=== PATIENT | female | born 1965 | race Hispanic/Latino ===

== ENCOUNTER 2020-01-22 18:15 | Emergency (ER) | payer BC ==
--- OUTSIDE RECORDS SUMMARY | 2020-01-22 18:17 | XMS REPORT | Clinical Summary ---
:1965 Author Organization [facility] Address [address] [place] [address] Care Team Providers Name Role Phone MD Venkatesh Primary Care Provider Allergies No Known Active Allergies Medications Medication Sig Dispensed Refills Start Date End Date Status losartan (COZAAR) 50 MG TK 1 T PO D 0 11/11/2015 Active tablet bisoprolol (ZEBETA) 5 MG TK 1 T PO QD 5 11/11/2015 Active tablet levothyroxine (SYNTHROID, TK 1 T PO QAM 1 6 Active LEVOTHROID) 112 MCG tablet Active Problems Problem Noted Date Radial styloid tenosynovitis of both hands 12/01/2015 Carpal tunnel syndrome on right 12/01/2015 Carpal tunnel syndrome, left 12/01/2015 Medical History Medical History Date Comments Hypertension Hyperlipidemia IBS (irritable bowel syndrome) Ulcerative colitis (HCC) Carpal tunnel syndrome on right 12/01/2015 Carpal tunnel syndrome, left 12/01/2015 Family History Medical History Relation Name Comments Arthritis Mother Relation Name Status Comments Mother Social History Tobacco Use Types Packs/Day Years Used Date Never Assessed Sex Assigned at Date Recorded Not on file Last Filed Vital Signs Not on file Plan of Treatment Health Maintenance Due Date Last Done Comments CERVICAL CANCER SCREENING 1986 BREAST CANCER SCREENING 2015 COLONOSCOPY SCREENING 2015 SHINGLES VACCINES (#1) 2015 INFLUENZA VACCINE 10/19/2019 Results Not on fileafter 01/21/2019 Insurance Payer Benefit Plan / Subscriber ID Effective Dates Phone Addre ss Type Group BCBS EXCHANGE BLUE ADVANTAGE [id number] 2015-Present Exchange HMO EXCH Advance Directives For more information, please contact: [phone] Type Date Recorded Patient Track Grinder Explanati on Advance Directives, Living Will and Medical Power of Human Resources Executive Assistant
--- OUTSIDE RECORDS SUMMARY | 2020-01-22 18:18 | XMS REPORT | Summary of Care ---
:1965 Author Organization [facility] Address [address] [place] [address] Care Team Providers Name Role Phone Unavailable Primary Care Provider Unavailable Reason for Visit Reason Comments Exposure Encounter Details Date Type Department Care Team Description 11/07/2019 Laboratory Only [facility] Family Tracee Bolaños, SEO CONSULTANT [address] [place] [address] Suspected 2019 [facility], Adc Fam Pob I Coronavirus 136 [facility] Infection ([address] Drive Dx) [place] [address] Allergies Not on Filedocumented as of this encounter (statuses as of 11/07/2019) Medications Not on filedocumented as of this encounter (statuses as of 11/07/2019) Active Problems Not on filedocumented as of this encounter (statuses as of 11/07/2019) Social History Tobacco Use Types Packs/Day Years Used Date Never Assessed Sex Assigned at Date Recorded Not on file documented as of this encounter Last Filed Vital Signs Not on filedocumented in this encounter Nursing Notes Martha Nguyen MA - 11/07/2019 8:00 AM DILLONmichi Zaldivar is a 54 year old female here for COVID Screening with a Nasopharyngeal Swab All droplet and contact precautions taken with appropriate PPE worn while interacting with patient. ? Goggles ? N95 Mask ? Gloves ? Gown RR 18 Pulse Ox 99% Patient educated on plan of care for visit, swabbing technique, risks and benefits of test and length of time to receive results. Verbal consent obtained to perform test. CDC Fact Sheet for Patients nCoV Diagnostic Panel dated 06/02/2019 and Factsheet What to Do if Sick with COVID 19 05/13/19 provided. Patient swabbed per appropriate nasopharyngeal technique, and patient tolerated well. Patient was discharged from the testing clinic in stable condition. Martha Nguyen MA 11/07/2019 8:08 AM documented in this encounter Plan of Treatment Name Type Priority Associated Diagnoses Order S esa COVID-19 (PCR MOLECULAR LAB Routine Suspected 2019 No pa Ordered: 11/07/2019 TESTING) Coronavirus Infection Health Maintenance Due Date Last Done Comments HEPATITIS C (HCV) SCREEN 1965 Depression Screening 1977 DTaP,Tdap,and Td Vaccines (1 - 1984 Tdap) PAP SMEAR 1986 Breast Cancer Screening (MAMMOGRAM) 2005 COLON CANCER SCREENING ANNUAL 2015 FIT/FOBT COLON CANCER SCREENING FIT DNA 2015 EVERY 3 YEARS COLON CANCER SCREENING 2015 SIGMOIDOSCOPY EVERY 5 YEARS COLONOSCOPY 2015 Colorectal Cancer Screening 2015 Zoster Recombinant Vaccine 2015 (SHINGRIX) (1 of 2) INFLUENZA VACCINE (#1) 2019 PNEUMOCOCCAL 0-64 YEARS COMBINED Aged Out No longer eligible based on SERIES patient's age to complete this topic documented as of this encounter Results Not on filedocumented in this encounter Visit Diagnoses Diagnosis Suspected 2018 Novel Coronavirus Infecti on - Primary documented in this encounter Additional Health Concerns Infection Onset Date Last Indicated Resolved Time COVID-19 Rule Out 11/07/2019 11/07/2019 documented as of this encounter Insurance Payer Benefit Plan Subscriber ID Effective Dates Phone Address Type / Group BCBS OF [place] [id number] 2019-Prese [phone] [address] PPO/POS [place] - OUT OF nt 7 [id number] [place] [address] BCBS OF BCBS FED [id number] 2019-Prese [phone] [address] PPO/POS [place] SELECT nt [id number] [place] [address] documented as of this encounter
--- OUTSIDE RECORDS SUMMARY | 2020-01-22 18:18 | XMS REPORT | Clinical Summary ---
:1965 Author Organization [facility] Address [address] [place] [address] Care Team Providers Name Role Phone Arley Riddle Primary Care Provider Allergies No Known Allergies Medications Medication Sig Dispensed Refills Start Date End Date Status bisoprolol-hydroCHLOROt Take 1 tablet by 0 Active hiazide (ZIAC) 5-6.25 mouth daily. mg per tablet losartan (COZAAR) 50 MG Take 50 mg by 0 Active tablet mouth daily. esomeprazole (NEXIUM) Take 40 mg by 0 Active 40 MG capsule mouth daily. levothyroxine Take 112 mcg by 0 Active (SYNTHROID, LEVOTHROID) mouth Every 112 MCG tablet morning on an empty stomach. acetaminophen (TYLENOL) Take 500 mg by 0 Active 500 MG tablet mouth every 6 (six) hours as needed for Pain. mesalamine (LIALDA) 1.2 Take 1,200 mg by 0 Active gram EC tablet mouth daily with breakfast. Active Problems Not on file Encounters Date Type Specialty Care Team Description 12/30/2019 Outside Orders Central Scheduling Cricket Garcia Screen ing mammogram, MD Eh encounter for ( Primary Dx) after 01/21/2019 Social History Tobacco Use Types Packs/Day Years Used Date Never Smoker Smokeless Tobacco: Never Used Alcohol Use Drinks/Week oz/Week Comments Yes 1 Glasses of wine 1.0 socially Sex Assigned at Date Recorded Not on file Last Filed Vital Signs Not on file Plan of Treatment Health Maintenance Due Date Last Done Comments COLON CANCER SCREENING 1965 COLONOSCOPY CERVICAL CANCER SCREENING PAP 1986 ONLY (Age 21-65) LIPID PANEL 2010 INFLUENZA VACCINE (#1) 2019 BREAST CANCER SCREENING 12/27/2020 12/27/2018, 11/14/2017, 11/08/2016, Additional history exists Results Not on fileafter 01/21/2019 Insurance Payer Benefit Plan Subscriber ID Effective Dates Phone Address Type / Group BLUE BCBS HMO [id number] 2010-Bee [phone] [address] HMO/POS CROSS/BLUE BLUE/ESSENTIA t [id number] [place] [address] (Work) [phone]
--- OUTSIDE RECORDS SUMMARY | 2020-01-22 18:18 | XMS REPORT | Summary of Care ---
:1965 Author Organization [facility] Address [address] [place] [address] Care Team Providers Name Role Phone Unavailable Primary Care Provider Unavailable Reason for Visit Reason Comments Lab Results Encounter Details Date Type Department Care Team Description 01/01/2020 Telephone ACCESS CENTER Yuly Capellan hasher machine operator Results [address] [address] [place] [address] Allergies Not on Filedocumented as of this encounter (statuses as of 01/01/2020) Medications Not on filedocumented as of this encounter (statuses as of 01/01/2020) Active Problems Not on filedocumented as of this encounter (statuses as of 01/01/2020) Social History Tobacco Use Types Packs/Day Years Used Date Never Assessed Sex Assigned at Date Recorded Not on file COVID-19 Exposure Response Date Recorded In the last month, have you been in contact with Yes 12/31/2019 7:59 AM CDT someone who was confirmed or suspected to have Coronavirus / COVID-19? documented as of this encounter Last Filed Vital Signs Not on filedocumented in this encounter Miscellaneous Notes Telephone Encounter - Yuly Capellan RN - 01/01/2020 8:15 AM CDT Results COVID-19 (PCR MOLECULAR TESTING) (Order [id number]) Patient Release Status: This result is [facility] by the [facility] Result Information Flag: Normal Status: Final result (Collected: 12/31/2019 08:27) Provider Status: Open COVID-19 (PCR MOLECULAR TESTING) My Chart message sent to notify patient of negative results. Yuly MORROW RN-BC Nurse Clinician [facility] documented in this encounter Plan of Treatment Health Maintenance Due Date [...] Results Not on filedocumented in this encounter Additional Health Concerns Infection Onset Date Last Indicated Resolved Time COVID-19 Rule Out 12/31/2019 12/31/2019 01/01/2020 1: 46 AM CDT documented as of this encounter Insurance Payer Benefit Plan / Subscriber ID Effective Dates Phone Addre ss Type Group BCBS OF BLUE ESSENTIALS [id number] 2019-Bee [phone] [address] [facility] [id number] [place] [address] documented as of this encounter
--- OUTSIDE RECORDS SUMMARY | 2020-01-22 18:18 | XMS REPORT | Summary of Care ---
:1965 Author Organization [facility] - [facility] Address [address] [place] [address] Care Team Providers Name Role Phone Unavailable Primary Care Provider Unavailable Encounter Details Date Type Department Care Team Description 12/31/2019 Orders Only [facility] Doctor Unassigned, No [address] [facility] [place] [address] [address] [place] [address] Allergies Not on Filedocumented as of this encounter (statuses as of 12/31/2019) Medications Not on filedocumented as of this encounter (statuses as of 12/31/2019) Active Problems Not on filedocumented as of this encounter (statuses as of 12/31/2019) Social History Tobacco Use Types Packs/Day Years [...] Signs Not on filedocumented in this encounter Plan of Treatment Health [...] this topic documented as of this encounter Procedures Procedure Name Priority Date/Time Associated Diagnosis Comme nts NO SHOW OR MISSED Routine 12/31/2019 8:06 AM APPOINTMENT POLICY CDT ACKNOWLEDGEMENT documented in this encounter Results Not on filedocumented in this encounter Additional Health Concerns Infection Onset Date Last Indicated Resolved Time COVID-19 Confirmed 12/01/2019 12/01/2019 12/31/2019 12 :58 AM CDT documented as of this encounter Insurance Payer Benefit Plan / Subscriber ID Effective Dates Phone Addre ss Type Group BCBS OF BLUE ESSENTIALS [id number] 2019-Bee [phone] [address] [facility] [id number] [place] [address] documented as of this encounter
--- OUTSIDE RECORDS SUMMARY | 2020-01-22 18:18 | XMS REPORT | Summary of Care ---
:1965 Author Organization [facility] Address [address] [place] [address] Care Team Providers Name Role Phone Unavailable Primary Care Provider Unavailable Reason for Visit Reason Comments LAB WORK Auth/Cert Status Reason Specialty Diagnoses / Referred By Referred To Procedures Contact Contact Clinical Medical Diagnoses exposure Adc Lab Laboratory Procedures covid [address] [place] [address] Encounter Details Date Type Department Care Team Description 12/31/2019 Laboratory Only [facility] Danielle Hutson MD [address] [place] [address] Close exposure to Phlebotomy Only, Adc Test COVID-19 virus Lab-[place] (Primary Dx) [address] [place] [address] Allergies Not on Filedocumented as of this [...] filedocumented in this encounter Plan of Treatment Name Type Priority Associated Diagnoses Date/Ti me COVID-19 (PCR MOLECULAR LAB Routine Close exposure to 12/31/2019 8:27 AM CDT TESTING) COVID-19 virus Name Type Priority Associated Diagnoses Order S chedule COVID-19 (PCR MOLECULAR LAB Routine Close exposure to Expected: 12/31/2019, TESTING) COVID-19 virus Expires: 12/18 Health Maintenance Due Date Last Done Comments [...] filedocumented in this encounter Visit Diagnoses Diagnosis Close exposure to COVID-19 virus - Prima ry documented in this encounter Insurance Payer Benefit Plan / Subscriber ID Effective Dates Phone Addre ss Type Group BCBS OF BLUE ESSENTIAL[place] [id number] 2019-Bee [phone] [address] [facility] [id number] [place] [address] documented as of this encounter
--- OUTSIDE RECORDS SUMMARY | 2020-01-22 18:18 | XMS REPORT | Continuity of Care Document ---
:1965 Author Organization [facility] t Address [address] [place] [address] Care Team Providers Name Role Phone Arley Riddle Primary Care Physician Timi FIGUEROA Attending Clinician Unavailable Only, Test Attending Clinician Unavailable Doctor Unassigned, Name Attending Clinician Unavailable Jose HICKS, Eh Attending Clinician Lab, Fam Pob I Attending Clinician Unavailable Baljeet SERRANO Attending Clinician Unavailable Baljeet SERRANO Admitting Clinician Unavailable Payers Payer Name Policy Type Policy Effective Date Expiration Date Sour ce Number BLUE CROSS/BLUE [id number] 2010 [facility] 00:00:00 - Medical BLUE/ESSENTIALSxx Avawam [id number], [place] [address]GXB/POS Problems Condition Condition Condition Status Onset Resolution Last Treating Co mments Source Name Details Category Date Date Treatment Clinician Date Radial Radial Disease Active [place] styloid styloid 11-30 [facility] tenosynovi tenosynovi 00:00: st tis of tis of 00 both hands both hands Carpal Carpal Disease Active [facility] tunnel tunnel 11-30 [facility] syndrome syndrome 00:00: st on right on right 00 Carpal Carpal Disease Active [facility] tunnel tunnel 11-30 [facility] syndrome, syndrome, 00:00: st left left 00 Allergies, Adverse Reactions, Alerts This patient has no known allergies or adverse reactions. Family History Family Member Diagnosis Comments Start Date Stop Date Source Natural mother Arthritis [place] [facility] Social History Social Habit Start Date Stop Date Quantity Comments Source Sex Assigned At [facility] Tobacco use and 2016-12-28 2016-12-[address] [facility] Alcohol intake 2016-12-28 2016-12-28 [facility] [facility] (finding) Alcohol Comment 2016-12-28 2016-12-[address] [facility] - 00:[facility]00 [facility]00 [facility] Smoking Status Start Date Stop Date Source Never smoker [facility] Medications Ordered Filled Start Stop Current Ordering Indication Dosage Frequency Signature Comments Components Source Medication Medication Date Date Medication? Clinician (SIG) Name Name bisoprolol- 2016-03 Yes 1{tbl} QD Take [address] hydroCHLORO 0-11 tablet by Chau es - thiazide 14:35: mouth Medical (ZIAC) 21 daily. Center 5-6.25 mg per tablet losartan 2016-03 Yes 50mg QD Take [address] (COZAAR) 50 0-11 by mouth Luke s - MG tablet 14:35: daily. Medica l 21 Center esomeprazol 2016-03 Yes 40mg QD Take [address] [facility] (NEXIUM) 0-11 by mouth Lukes - 40 MG 14:35: daily. Medical capsule 21 Center levothyroxi 2016-03 Yes 112ug Take [address] ne 0-11 mcg by Lukes - (SYNTHROID, 14:35: mouth Medic al LEVOTHROID) 21 Every Center 112 MCG morning on tablet an empty stomach. acetaminoph 2016-03 Yes 500mg Take [address] en 0-11 mg by Lukes - (TYLENOL) 14:35: mouth Medical 500 MG 21 every 6 Center tablet (six) hours as needed for Pain. mesalamine 2016-03 Yes 1200mg Take 1,[address] (LIALDA) 0-11 mg by Lukes - 1.2 gram EC 14:35: mouth Medic al tablet 21 daily with Center breakfast. losartan Yes TK 1 T PO [place] (COZAAR) 50 8-24 D [facility] MG tablet 00:00: st 00 bisoprolol Yes TK 1 T PO Ho brandon (ZEBETA) 5 8-24 QD [facility] MG tablet 00:00: st 00 levothyroxi Yes TK 1 T PO H alisha ne 8-23 QAM [facility] (SYNTHROID, 00:00: st LEVOTHROID) 00 112 MCG tablet Procedures This patient has no known procedures. Plan of Care Planned Activity Planned Date Details Comments Source Future Scheduled 2020-12-[address] [facility] Test 00:00:00 [facility] breast (procedure) [code = 420575925] Future Scheduled 2019-11-[address] [facility] - Test 00:00:00 (#1) [code = [facility] INFLUENZA VACCINE (#1)] Future Scheduled 2019-10-19 INFLUENZA VACCINE [place] [facility] Test 00:00:00 [code = INFLUENZA VACCINE] Future Scheduled 2015 BREAST CANCER [facility] Test 00:00:00 SCREENING [code = BREAST CANCER SCREENING] Future Scheduled 2015 COLONOSCOPY SCREENING Abilio [facility] Test 00:00:00 [code = COLONOSCOPY SCREENING] Future Scheduled 2015 SHINGLES VACCINES [place] [facility] Test 00:00:00 (#1) [code = SHINGLES VACCINES (#1)] Future Scheduled [address] [facility] - Test 00:00:00 (procedure) [code = [facility] [id number]] Future Scheduled [address] [facility] - Test 00:00:00 [facility] cervix (procedure) [code = 359490821] Future Scheduled 1986 Screening for [facility] Test 00:00:00 malignant neoplasm of cervix (procedure) [code = 489552015] Future Scheduled [address] [facility] - Test 00:00:00 [facility] colon (procedure) [code = 007256656] Encounters Start End Encounter Admission Attending Care Care Encounter Source Date/Time Date/Time Type Type Clinicians Facility Department ID 2020-01-01 2020-01-01 Telephone CHAD Capellan [id number] 00:00:00 00:00:00 Yuly HERNÁNDEZY [id number] [id number] 2019-12-31 2019-12-31 Laboratory Only, [facility] [id number] 08:07:44 08:22:44 Only Test [facility] [id number]2.686 [place] [phone] [id number] 2019-12-31 2019-12-31 Orders Doctor CHAD [id number] 00:00:00 00:00:00 Only Unassigned, [place] [id number] [place] [id number] [id number] 2019-12-01 2019-12-01 Laboratory Lab, [facility] [id number] 17:27:34 17:49:51 Only Fam Pob I Health [id number] [place] [id number] [facility] [id number] nal [address] 2019-12-01 2019-12-01 Letter Doctor CHAD [id number] 00:00:00 00:00:00 (Out) Unassigned, [place] [id number] [place] [id number] 2019-11-07 2019-11-07 Laboratory Lab, [facility] [id number] 08:03:33 08:23:33 Only Fam Pob I Health [id number]2.686 [facility] [id number] nal 044 Office [address] One Results Test Description Test Time Test Comments Results Result Sour e Comments MM, DIGITAL, 2018-12-27 Diagnostic MRN#: MAMMO, SCREENING, 13:48:00 workup per [id number] - WITH SOFY, radiologist?->Ye MM, DIGITAL, MAMMO, BILATERAL sReason for SCREENING, WITH INCLUDING CAD Exam:->Z12.31 SOFY, BILATERAL INCLUDING CADBILATERAL DIGITAL SCREENING MAMMOGRAM 3D/2D WITH CAD: 12/27/2018Comparison is made to exams dated: 11/14/2017 mammogram, 11/08/2016 mammogram, and 11/06/2015 mammogram - [facility]. There are scattered fibroglandular elements in both breasts that could obscure a lesion on mammography. Tomosynthesis 3D imaging of the breast was also performed. Current study was also evaluated with a Computer Aided Detection (CAD) system. There are benign calcifications in both breasts. No significant masses, calcifications, or other findings are seen in either breast. There has been no significant interval change. IMPRESSION: BENIGNThere is no mammographic evidence of malignancy. A 1 year screening mammogram is recommended. The exam was reviewed by a staff physician. Forrest Mcknight,nerizwan/penrad:1 13:48:37 Normal Exam Mammogram BI-RADS: 2 Benign , DIGITAL, 2017-11-14 Reason for MRN#: MAMMO, SCREENING, 15:17:00 Exam:->BREAST [id number] - BILATERAL CANCER SCREENING MM, DIGITAL, MAMMO, INCLUDING CAD SCREENING, BILATERAL INCLUDING CADBILATERAL DIGITAL SCREENING MAMMOGRAM WITH CAD: 11/14/2017CLINICAL: Routine screening mammogram. Comparison is made to exams dated: 11/08/2016 mammogram and 11/06/2015 mammogram - [facility]. There are scattered fibroglandular elements in both breasts that could obscure a lesion on mammography. Current study was also evaluated with a Computer Aided Detection (CAD) system. No significant masses, calcifications, or other findings are seen in either breast. IMPRESSION: NEGATIVEThere is no mammographic evidence of malignancy. A 1 year screening mammogram is recommended. The exam was reviewed by a staff physician. Forrest Mcknight,antonette/penrad: 15:17:34 Normal Exam Mammogram BI-RADS: 1 Negative G0202 -HEMOGLOBIN METER 2016-12-28 13:05:00 Test Item Value Reference Range Interpretation Comme nts POC-HEMOGLOBIN METER (SHAYLEE) (test 14.2 g/dL 12.0-15.[address] [facility] [address] [facility] = 1539) [facility] [id number] 0
--- OUTSIDE RECORDS SUMMARY | 2020-01-22 18:18 | XMS REPORT | Summary of Care ---
:1965 Author Organization [facility] Address [address] [place] [id number] Care Team Providers Name Role Phone Unavailable Primary Care Provider Unavailable Reason for Visit Reason Comments LAB covid testing- cough, conges tion, sore throat, headache, vomiting Encounter Details Date Type Department Care Team Description 12/01/2019 Laboratory Only [facility] Family Donna Smith, MANHOLE BUILDER [address] [facility] [address] [place] [address] Suspected Covid-19 Medicine - [facility], Adc Fam Pob I Virus Infection [address] [facility] (Primary D [place]) [place] [address] Allergies Not on Filedocumented as of this encounter (statuses as of 12/01/2019) Medications Not on filedocumented as of this encounter (statuses as of 12/01/2019) Active Problems Not on filedocumented as of this encounter (statuses as of 12/01/2019) Social History Tobacco Use Types Packs/Day Years Used Date Never Assessed Sex Assigned at Date Recorded Not on file COVID-19 Exposure Response Date Recorded In the last month, have you been in contact with Yes 12/01/2019 5:49 PM CDT someone who was confirmed or suspected to have Coronavirus / COVID-19? documented as of this encounter Last Filed Vital Signs Not on filedocumented in this encounter Nursing Notes Mere Sanchez MA - 12/01/2019 5:20 PM CDTBmichi Zaldivar is a 54 year old female [...] from the testing clinic in stable condition. Mere Sewell MA 12/01/2019 5:51 PM Bilate nares swabbed during COVID19 nasopharyngeal swab. documented in this encounter Plan of Treatment Name Type Priority Associated Diagnoses Order S chedule COVID-19 (PCR MOLECULAR LAB Routine Suspected Covid-1 9 Virus Expected: 12/01/2019, TESTING) Infection Expires: 2020 Health Maintenance Due Date Last Done Comments [...] in this encounter Visit Diagnoses Diagnosis Suspected Covid-19 Virus Infection - Nichole lilliam documented in this encounter Additional Health Concerns Infection Onset Date Last Indicated Resolved Time COVID-19 Rule Out 12/01/2019 12/01/2019 documented as of this encounter Insurance Payer Benefit Plan / Subscriber ID Effective Dates Phone Addre ss Type Group BC[employer] OF [employer] [id number] 2019-[facility] [id number] [place] [address] documented as of this encounter
--- OUTSIDE RECORDS SUMMARY | 2020-01-22 18:18 | XMS REPORT | Summary of Care ---
:1965 Author Organization [facility] - Health Address [address] [place] [address] Care Team Providers Name Role Phone Unavailable Primary Care Provider Unavailable Encounter Details Date Type Department Care Team Description 12/01/2019 Letter (Out) [facility] [employer] Message s Doctor Unassigned, No [address] [facility] [place] [address] [address] [facility] [phone] [place] [address] Allergies Not on Filedocumented as of this [...] Results Not on filedocumented in this encounter Insurance Payer Benefit Plan / Subscriber ID Effective Phone Address T ype Group Dates [place] - [id number] 2019-Prese [phone] [address] PPO/POS [place] OUT OF STATE nt [phone] [place] [address] BCBS OF [facility] [id number] 2019-Prese [phone] [address] HMO [place] nt [phone] [id number] [place] [address] documented as of this encounter
[2020-01-22] MEDS ORDERED: HYDROCODONE/APAP 7.5/325 MG TAB ONE (18:52)
--- NOTE | 2020-01-22 19:02 | RAD REPORT ---
EXAM DESCRIPTION: CT - Head Brain Wo Cont - 01/22/2020 6:52 pm CLINICAL HISTORY: fall, head injury Trauma, head injury COMPARISON: No comparisons TECHNIQUE: All CT scans are performed using dose optimization technique as appropriate and may inclu de automated exposure control or mA/KV adjustment according to patient size. FINDINGS: No intracranial hemorrhage, hydrocephalus or extra-axial fluid collection.No areas of brai n edema or evidence of midline shift. The paranasal sinuses and mastoids are clear. The calvarium is intact. Small right frontal scalp nancy christine. IMPRESSION: No acute intracranial abnormality.
--- NOTE | 2020-01-22 19:11 | ER ---
Nurse's Notes [facility] Name: Jessie Zaldivar Age: 54 yrs Sex: Female : 1965 Arrival Date: 01/22/2020 Time: 18:[address] Private MD: Diagnosis: Contusion of other part of head-forehead;Fall on same level from slipping, tripping and stumbling Presentation: 01/21 18:28 Chief complaint: Patient states: "I fell and hit my head while jogging.". Coronavirus jd3 screen: At this time, the client does not indicate any symptoms associated with coronavirus-19. Ebola Screen: Patient negative for fever greater than or equal to 101.5 degrees Fahrenheit, and additional compatible Ebola Virus Disease symptoms. Initial Sepsis Screen: Does the patient meet any 2 criteria? No. Patient's initial sepsis screen is negative. Does the patient have a suspected source of infection? No. Patient's initial sepsis screen is negative. Risk Assessment: Do you want to hurt yourself or someone else? Patient reports no desire to harm self or others. Onset of symptoms was January 22, 2020. 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 N/A - Post-menopause jd3 Historical: - Allergies: 18:30 No Known Allergies; jd3 - Home Meds: 18:36 bisoprolol fumarate 5 mg Oral tab 1 tab once daily [Active]; levothyroxine 112 mcg tab tw2 1 tab once daily [Active]; losartan 50 mg Oral tab 1 tab once daily [Active]; mesalamine 1.2 g Oral 4 tabs once daily [Active]; promethazine 25 mg Oral tab 1 tab every 6 hours [Active]; Uceris 9 mg Oral TaDE 1 tab once daily [Active]; - PMHx: 18:30 Hypertension; Hypothyroidism; ulcerative colitis; jd3 - PSHx: 18:30 Carpal Tunnel Repair; Thyroidectomy; ; Cholecystectomy; jd3 - Immunization history:: Adult Immunizations up to date. - Social history:: Smoking status: Patient denies any tobacco usage or history of. Screenin:35 Abuse screen: Denies threats or abuse. Nutritional screening: No deficits noted. tw2 Tuberculosis screening: No symptoms or risk factors identified. Fall Risk None identified. Assessment: 18:35 Reassessment: provider at bedside at this time. tw2 18:40 General: Appears in no apparent distress. obese, well groomed, Behavior is calm, tw2 cooperative, appropriate for age. Pain: Complains of pain in inner aspect of right eyebrow, middle aspect of right eyebrow and outer aspect of right eyebrow and forehead. Neuro: Level of Consciousness is awake, alert, obeys commands, Oriented to person, place, time, situation. Cardiovascular: Patient's skin is warm and dry. Respiratory: Airway is patent Respiratory effort is even, unlabored, Respiratory pattern is regular, symmetrical. GI: No signs and/or symptoms were reported involving the gastrointestinal system. : No signs and/or symptoms were reported regarding the genitourinary system. EENT: No signs and/or symptoms were reported regarding the EENT system. Derm: Skin is intact, is healthy with good turgor, Skin is dry. Musculoskeletal: Circulation, motion, and sensation intact. Range of motion: intact in all extremities. Injury Description: Abrasion sustained to dorsal aspect of middle phalanx of right ring finger, dorsal aspect of middle phalanx of right little finger and outer aspect of right palm. 19:11 General: Appears in no apparent distress. Behavior is appropriate for age. Pain: ea Complains of pain in right eye. Neuro: Level of Consciousness is awake, alert, obeys commands, Oriented to person, place, time, situation. Cardiovascular: Patient's skin is warm and dry. Respiratory: Airway is patent Respiratory effort is even, unlabored, Respiratory pattern is regular, symmetrical. 19:18 Reassessment: Patient and/or family updated on plan of care and expected duration. Pain ea level reassessed. Patient is alert, oriented x 3, equal unlabored respirations, skin warm/dry/pink. Discharge instruction given to patient and family, verbalized the understanding of instruction. Pt left ED ambulatory tolerating well. Vital Signs: 18:30 BP 161 / 98; Pulse 81; Resp 17 S; Temp 98.3(O); Pulse Ox 100% on R/A; Weight 81.65 kg jd3 (R); Height 5 ft. 1 in. (154.94 cm) (R); Pain 9/10; 18:30 Body Mass Index 34.01 (81.65 kg, 154.94 cm) jd3 ED Course: 18:15 Patient arrived in ED. as 18:29 Triage completed. jd3 18:32 Arm band placed on. jd3 18:33 Miko Rooney PA is PHCP. cp 18:33 Ivan Mercedes MD is Attending Physician. cp 18:33 Bed in low position. Call light in reach. Adult w/ patient. pvc monitor on. Pulse tw2 ox on. NIBP on. Warm blanket given. 18:35 Olivia Daevy, RN is Primary Nurse. tw2 18:51 CT Head Brain wo Cont In Process Unspecified. EDMS 19:00 Report given to Evgeny, RN, and CAROLINA Nam. tw2 19:18 No provider procedures requiring assistance completed. Patient did not have IV access ea during this emergency room visit. Administered Medications: 18:40 Drug: Hydrocodone-Acetaminophen (7.5 mg-325 mg) 1 tabs {Note: RASS 0.} Route: PO; tw2 Outcome: 19:11 Discharge ordered by MD. cp 19:18 Discharged to home ambulatory, with family. ea 19:18 Condition: stable 19:18 Discharge instructions given to patient, Instructed on discharge instructions, follow up and referral plans. medication usage, Demonstrated understanding of instructions, follow-up care, medications, Prescriptions given X 1. 19:19 Patient left the ED. ea Signatures: Dispatcher [employer] EDBlessing Gallardo as Miko Rooney PA PA cp Olivia Davey, RN RN tw2 Jessy Burdick RN RN ea Davies, Jonathon, RN RN jd3
--- NOTE | 2020-01-22 19:11 | EDPHYS ---
Physician Documentation [facility] Name: Jessie Zaldivar Age: 54 yrs Sex: Female : 1965 Arrival Date: 01/22/2020 Time: 18:[address] Private MD: ED Physician Ivan Mercedes HPI: 01/21 18:50 This 54 yrs old Female presents to ER via Ambulatory with complaints of Fall cp Injury, Closed Head Injury-Adult. 18:50 Details of fall: The patient fell from an upright position, while running, and struck a cp concrete surface. Onset: The symptoms/episode began/occurred just prior to arrival. Associated injuries: The patient sustained injury to the head, contusion, hematoma. Patient c/o headache, denies LOC. 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 N/A - Post-menopause jd3 Historical: - Allergies: 18:30 No Known Allergies; jd3 - Home Meds: 18:36 bisoprolol fumarate 5 mg Oral tab 1 tab once daily [Active]; levothyroxine 112 mcg tab tw2 1 tab once daily [Active]; losartan 50 mg Oral tab 1 tab once daily [Active]; mesalamine 1.2 g Oral 4 tabs once daily [Active]; promethazine 25 mg Oral tab 1 tab every 6 hours [Active]; Uceris 9 mg Oral TaDE 1 tab once daily [Active]; - PMHx: 18:30 Hypertension; Hypothyroidism; ulcerative colitis; jd3 - PSHx: 18:30 Carpal Tunnel Repair; Thyroidectomy; ; Cholecystectomy; jd3 - Immunization history:: Adult Immunizations up to date. - Social history:: Smoking status: Patient denies any tobacco usage or history of. ROS: 18:52 Constitutional: Negative for body aches, chills, fever, poor PO intake. cp 18:52 Neck: Negative for pain with movement, pain at rest, stiffness. 18:52 Cardiovascular: Negative for chest pain, palpitations. 18:52 Respiratory: Negative for cough, shortness of breath, wheezing. 18:52 Abdomen/GI: Negative for abdominal pain, vomiting, diarrhea, constipation. 18:52 Back: Negative for pain at rest, pain with movement. 18:52 Neuro: Positive for headache, Negative for altered mental status, loss of consciousness, numbness, seizure activity, syncope, weakness. Exam: 18:55 Constitutional: The patient appears in no acute distress, alert, awake, cp non-diaphoretic, non-toxic, well developed, well nourished. 18:55 Head/face: Noted is hematoma, that is moderate, of the right side of forehead. cp 18:55 Eyes: Periorbital structures: appear normal, Pupils: equal, round, and reactive to light and accomodation, Extraocular movements: intact throughout, Conjunctiva: normal, no exudate, no injection, Sclera: no appreciated abnormality, Lids and lashes: appear normal, bilaterally. 18:55 ENT: External ear(s): are unremarkable, Ear canal(s): are normal, clear, TM's: dullness, bilaterally, Nose: is normal, Mouth: Lips: moist, Oral mucosa: pink and intact, moist, Posterior pharynx: is normal, airway is patent. 18:55 Neck: C-spine: vertebral tenderness, is not appreciated, crepitus, is not appreciated, ROM/movement: is normal, is supple, without pain, no range of motions limitations. 18:55 Chest/axilla: Inspection: normal, Palpation: is normal, no crepitus, no tenderness. 18:55 Cardiovascular: Rate: normal, Rhythm: regular. 18:55 Respiratory: the patient does not display signs of respiratory distress, Respirations: normal, no use of accessory muscles, no retractions, labored breathing, is not present, Breath sounds: are clear throughout, no decreased breath sounds. 18:55 Abdomen/GI: Inspection: abdomen appears normal, Palpation: abdomen is soft and non-tender, in all quadrants. 18:55 Back: pain, is absent, ROM is normal. 18:55 Skin: intact with no open wounds noted. 18:55 Neuro: Orientation: to person, place \T\ time. Mentation: is normal, Cerebellar function: is grossly normal, Motor: moves all fours, strength is normal, Sensation: is normal, Gait: is steady, at a normal pace, without difficulty. Vital Signs: 18:30 BP 161 / 98; Pulse 81; Resp 17 S; Temp 98.3(O); Pulse Ox 100% on R/A; Weight 81.65 kg jd3 (R); Height 5 ft. 1 in. (154.94 cm) (R); Pain 11/27; 18:30 Body Mass Index 34.01 (81.65 kg, 154.94 cm) jd3 MDM: 18:36 Patient medically screened. cp 19:00 Differential diagnosis: closed head injury, contusion, fracture, laceration, multiple cp trauma. 19:10 Data reviewed: vital signs, nurses notes, radiologic studies, CT scan. cp 19:10 Counseling: I had a detailed discussion with the patient and/or guardian regarding: the cp historical points, exam findings, and any diagnostic results supporting the discharge/admit diagnosis, radiology results, to return to the emergency department if symptoms worsen or persist or if there are any questions or concerns that arise at home. 19:10 Response to treatment: the patient's symptoms have mildly improved after treatment, and cp as a result, I will discharge patient. Special discussion: Based on the patient's history, exam and DX evaluation, there is no indication for emergent intervention or inpatient [place]. It is understood by the patient/guardian that if the SXs persist or worsen they need to return immediately for re-evaluation. 01/21 18:37 Order name: CT Head Brain wo Cont; Complete Time: 19:04 cp 01/21 19:04 Interpretation: Report reviewed. 01/21 18:44 Order name: Ice pack; Complete Time: 18:44 tw2 Administered Medications: 18:40 Drug: Hydrocodone-Acetaminophen (7.5 mg-325 mg) 1 tabs {Note: RASS 0.} Route: PO; tw2 Disposition: 19:25 Chart complete. cp Disposition: 01/22/20 19:11 Discharged to Home. Impression: Contusion of other part of head - forehead, Fall on same level from slipping, tripping and stumbling. - Condition is Stable. - Discharge Instructions: Contusion, Head Injury, Adult, Hematoma. - Prescriptions for Tramadol 50 mg Oral Tablet - take 1 tablet by ORAL route every 8 hours as needed; 12 tablet. - Medication Reconciliation Form, Thank You Letter, Antibiotic Education, Prescription Opioid Use form. - Follow up: Private Physician; When: 1 - 2 days; Reason: Worsening of condition. - Problem is new. - Symptoms have improved. Addendum: 01/28/2020 19:13 Co-signature as Attending Physician, Ivan Mercedes MD. r n Signatures: Dispatcher [employer] EDMS Ivan Mercedes MD MD rn Miko Rooney PA PA cp Olivia Davey, RN RN tw2 Jessy Burdick RN RN George Griffiths RN RN jd3 Corrections: (The following items were deleted from the chart) 01/21 19:19 19:11 01/22/2020 19:11 Discharged to Home. Impression: Contusion of other part of head ea - forehead; Fall on same level from slipping, tripping and stumbling. Condition is Stable. Forms are Medication Reconciliation Form, Thank You Letter, Antibiotic Education, Prescription Opioid Use. Follow up: Private Physician; When: 1 - 2 days; Reason: Worsening of condition. Problem is new. Symptoms have improved. cp
[2020-01-22 21:55] VITALS: BP 161/98; TEMP 98.3; O2SAT 100
== END 2020-01-22 19:19 | disposition home or self-care (01) ==
LOC: ER 18:15
DX: S00.83XA Contusion of other part of head, initial encounter (principal); W19.XXXA Unspecified fall, initial encounter; Y93.02 Activity, running; Y92.9 Unspecified place or not applicable; I10 Essential (primary) hypertension; E03.9 Hypothyroidism, unspecified
CPT/HCPCS: 70450; 99284

== ENCOUNTER 2022-10-31 06:23 | Emergency (ER) | payer BC ==
--- OUTSIDE RECORDS SUMMARY | 2022-10-31 06:30 | XMS REPORT | Continuity of Care Document ---
:1965 Author Organization [facility] t Address [address] [facility] [address] [place] [address] Care Team Providers Name Role Phone BOBBY RILEY Primary Care Physician Unavailable Bobby Riley Attending Clinician Unavailable Jam Davenport Attending Clinician MEKHI DOWELL Attending Clinician Unavailable Mekhi Schroeder Attending Clinician Yarelis Browning MD Attending Clinician ZENAIDA FERNANDES Attending Clinician Unavailable Estefania Sanchez PA-C Attending Clinician Zenaida Hilton Attending Clinician Only, Adc Test Attending Clinician Unavailable Nicole Davenport MD Attending Clinician NICOLE DAVENPORT Attending Clinician Unavailable Only, Ang Db Test Attending Clinician Unavailable Doctor Unassigned, [place] Attending Clinician Unavailable Yuly Capellan RN Attending Clinician Unavailable Lab, Adc Fam Pob I Attending Clinician Unavailable Estelita Zamorano Attending Clinician ESTELITA BOLAÑOS Attending Clinician Unavailable MAVERICK WALSH Attending Clinician Unavailable ANDREWS SHANNON Attending Clinician Unavailable Bobby Riley Admitting Clinician Unavailable ANDREWS SHANNON Admitting Clinician Unavailable Payers Payer Name Policy Type Policy Number Effective Date Expiration Date S ollie [employer] [place] [id number] 2020-03-20 - OUT OF STATE 00:00:00 Blue Cross and C1 [id number] Common S pirit Blue Shield - [facility] Blue Cross and C1 [id number] Common S pirit Blue Shield [facility] Blue Cross and C1 [id number] Common S pirit [facility] Blue Cross and C1 [id number] Common S pirit [facility] Blue Cross and C1 [id number] Common S pirit [facility] Blue Cross and C1 [id number] Common S pirit [facility] Blue Cross and C1 [id number] Common S pirit [facility] [id number] 2010-03-20 BLUE/ESSENTIAL 00:00:00 S Problems Condition Condition Condition Status Onset Resolution Last Treating Co mments Source Name Details Category Date Date Treatment Clinician Date Radial Radial Disease Active Methodi styloid styloid 11-30 st tenosynovi tenosynovi 00:00: Ho spita tis of tis of 00 l both hands both hands 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 [facility] syndrome syndrome 00:00: Hospit a on right on right 00 l 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 9[address] st syndrome, syndrome, 00:00: Hosp [facility]ie left left 00 l GERD GERD Disease Active Univers (gastroeso (gastroeso 7-24 it y of phageal phageal 00:00: [place] reflux reflux 00 Medical disease) disease) Branch Hypothyroi Problem Active 2022-08-28 M emoria dism Hypothyroi 22:45:23 l (disorder) dism Jose n (disorder) Active Problem 08/28/2022 [facility] Numbness Numbness Problem Active 2022-08-28 Memoria of hand of hand 22:45:23 l (finding) (finding) Herm boris Active Problem 08/28/2022 [facility] [place] Paresthesi Paresthes Problem Active 2022-08-28 Memoria a of hand ia of hand 22:45:23 l (finding) (finding) Herm boris Active Problem 08/28/2022 [facility] [place] Carpal Carpal Problem Active 2022-08-28 Tomasz johanna tunnel tunnel 22:45:23 l syndrome syndrome Jose n (disorder) (disorder) Active Problem 08/28/2022 [facility] [place] Hand pain Hand Problem Active 2022-08-28 Me moria (finding) pain 22:45:23 l (finding) [place] Active Problem 08/28/2022 [facility] Hyperlipid Hyperlipi Problem Active 2022-08-28 Memoria emia demia 22:45:23 l (disorder) (disorder) He r[place] Active Problem 08/28/2022 [facility] [place] Hypertensi Hypertens Problem Active 2022-08-28 Memoria ve elyse 22:45:23 l disorder, disorder, Herm boris systemic systemic arterial arterial (disorder) (disorder) Active Problem 08/28/2022 [facility] [place] [id number] Primary Problem Comm on [id number] osteoarthr Spirit itis of - [facility] right foot [facility] No known No known Disease Unive rs active active ity of problems problems [facility] Allergies, Adverse Reactions, Alerts Allergy Allergy Status Severity Reaction(s) Onset Inactive Treating Comm ents Source Name Type Date Date Clinician NO KNOWN Allergy Active [facility] ALLERGIE S NO KNOWN Drug Active Univers ALLERGIE Class ity of S [facility] Family History Family Member Diagnosis Comments Start Date Stop Date Source Natural mother [facility] Social History Social Habit Start Date Stop Date Quantity Comments Source History SDOH [facility] Frequency [facility] History SDOH [facility] Alcohol Std Drinks Medica l Center History SDOH [facility] Alcohol Binge Medical Abilio ter History of Tobacco [facility] - Use [facility] Gender identity [facility] Sexual orientation Method [facility] Hospital Exposure to 2021-12-12 2021-12-22 Not sure University SARS-CoV-2 (event) 00:00:00 17:55:00 [facility] Tobacco use and 2021-11-18 2021-11-18 Smokeless [facility] Areait y of exposure 00:00:00 00:00:00 tobacco non-user [facility] Alcohol intake 2016-12-28 2016-12-28 Current drinker ANILA [facility] 00:[facility] 00:00:00 of alcohol [facility] (finding) Alcohol Comment 2016-12-28 2016-12-28 socially ANILA Grijalva kes 00:00:00 00:00:00 Medical Center Sex Assigned At [address] [facility] kes 00:00:00 00:00:00 Medical Center Smoking Status Start Date Stop Date Source Unknown if ever smoked [facility] Tobacco smoking status [facility] Medications Ordered Filled Start Stop Current Ordering Indication Dosage Frequency Signature Comments Components Source Medication Medication Date Date Medication? Clinician (SIG) Name Name NexIUM Yes PO, Daily, Memor ia 4-03 0 l 21:08: Refill(s) Fareed NexIUM 0 Yes PO, Daily, Memor ia 4-03 0 l 21:08: Refill(s) [place] 00 bisoprolol Yes TAKE 1 Memor ia 5 mg oral 3-31 TABLET BY l tablet 15:39: MOUTH Fareed 00 DAILY bisoprolol 0 Yes TAKE 1 Memor ia 5 mg oral 3-31 TABLET BY l tablet 15:39: MOUTH [place] 00 DAILY losartan 50 0 Yes 50 mg = 1 M emoria mg oral 3-31 tab, PO, l tablet 15:39: Daily, # Fare[place] 00 30 tab, 0 Refill(s) rosuvastati 0 Yes 5 mg = 1 Me moria n 5 mg oral 3-31 tab, PO, l tablet 15:39: Bedtime, # Hiral nn 00 30 tab, 0 Refill(s) losartan 50 0 Yes 50 mg = 1 M emoria mg oral 3-31 tab, PO, l tablet 15:39: Daily, # [place] 00 30 tab, 0 Refill(s) rosuvastati 2022-0 Yes 5 mg = 1 Me moria n 5 mg oral 3-31 tab, PO, l tablet 15:39: Bedtime, # Hiral nn 00 30 tab, 0 Refill(s) levothyroxi Yes 125 Memori a ne 125 mcg 3-31 microgram l (0.125 mg) 15:38: = 1 tab, Her [place] oral tablet 00 PO, Daily, # 30 tab, 0 Refill(s) levothyroxi Yes 125 Memori a ne 125 mcg 3-31 microgram l (0.125 mg) 15:38: = 1 tab, Her [place] oral tablet 00 PO, Daily, # 30 tab, 0 Refill(s) doxycycline 2021-03- No [id number] 100mg Take 1 Univers hyclate 100 0-12-30 [id number] tablet by ity of mg tablet 00:00: 04:59 mouth in [place] :00 the Medical morning Branch and 1 tablet in the evening. Do all this for 7 days. doxycycline 2021-03- No [id number] 100mg Take 1 Univers hyclate 100 012-30 [id number] tablet by ity of mg tablet 00:00: 04:59 mouth in [place] 00 :00 the Medical morning Branch and 1 tablet in the evening. Do all this for 7 days. ciprofloxac Yes 250mg Take 250 U nivers in HCl 250 9-08 mg by ity of mg tablet 00:00: [place] 00 the Medical morning Branch and 250 mg in the evening. fluconazole Yes 100mg Take 100 U nivers 100 mg 9-08 mg by ity of tablet 00:00: mouth [place] 00 every Medical morning. Branch ciprofloxac Yes 250mg Take 250 U nivers in HCl 250 9-08 mg by ity of mg tablet 00:00: mouth [place] 00 the Medical morning Branch and 250 mg in the evening. fluconazole Yes 100mg Take 100 U nivers 100 mg 9-08 mg by ity of tablet 00:00: mouth [place] 00 every Medical morning. Branch ciprofloxac 2021- No ciprofloxa Univers in HCl 250 11-18 joe 250 mg it y of mg tablet 19:03: 00:00 tablet [place] 05 :00 TAKE 1 Medical TABLET BY Branch MOUTH TWICE DAILY azithromyci 2021- azithromyc Univers n 250 mg 11-18 in 250 mg ity o f tablet 19:03: 00:00 tablet [place] 05 :00 Medical Branch esomeprazol Yes 40mg Take 40 mg Univers e 40 mg 11-18 by mouth ity of capsule 18:43: in the [place] [address] morning. Medical Branch losartan 50 Yes losartan Un thomas mg tablet 11-18 50 mg ity of 18:43: tablet [place] 12 TAKE 1 Medical TABLET BY Branch MOUTH DAILY meloxicam Yes meloxicam Uni vers 7.5 mg 11-18 7.5 mg ity of tablet 18:43: tablet 12 TAKE 1 Medical TABLET BY Branch MOUTH EVERY DAY mupirocin 2 Yes mupirocin U nivers % ointment 11-18 2 % ity of 18:43: topical ointment Medical APPLY [place] TWICE DAILY Nitrofurant Yes nitrofuran Univers oin&Nit. 11-18 toin ity of Macrocryst 18:43: monohydrat [place] 100 mg 12 e/macrocry Medical capsule stals 100 Branch mg capsule TAKE 1 CAPSULE BY MOUTH EVERY 12 HOURS nystatin-tr Yes nystatin-t Univers iamcinolone 11-18 riamcinolo it y of cream 18:43: ne 100,000 [place] 12 unit/g-0.1 Medical % topical Branch cream APPLY TOPICALLY TO THE AFFECTED AREA IN THE MORNING AND IN THE EVENING proMETHazin Yes promethazi Univers e 25 mg 11-18 ne 25 mg ity of tablet 18:43: tablet TK [place] 12 1 T PO Q 6 Medical H PRN Branch sulfamethox Yes sulfametho Univers azole-trime 11-18 xazole 800 it y of thoprim 18:43: mg-trimeth [place] 800-160 mg 12 oprim 160 Medi long per tablet mg tablet Bran ch TAKE 1 TABLET BY MOUTH TWICE DAILY traMADoL 50 Yes tramadol Un thomas mg tablet 11-18 50 mg ity of 18:43: tablet TK [place] 12 1 T PO Q 8 Medical H PRN P Branch esomeprazol 2022-0 Yes 40mg Take 40 mg Univers e 40 mg 11-18 by mouth ity of capsule 18:43: in the [place] [address] morning. Medical Branch losartan 50 Yes losartan Un thomas mg tablet 11-18 50 mg ity of 18:43: tablet 12 TAKE 1 Medical TABLET BY Branch MOUTH DAILY meloxicam Yes meloxicam Uni vers 7.5 mg 11-18 7.5 mg ity of tablet 18:43: tablet 12 TAKE 1 Medical TABLET BY Branch MOUTH EVERY DAY mupirocin 2 Yes mupirocin U nivers % ointment 11-18 2 % ity of 18:43: topical ointment Medical APPLY Branch TWICE DAILY Nitrofurant Yes nitrofuran Univers oin&Nit. 11-18 toin ity of Macrocryst 18:43: monohydrat [place] 100 mg 12 e/macrocry Medical capsule stals 100 Branch mg capsule TAKE 1 CAPSULE BY MOUTH EVERY 12 HOURS nystatin-tr Yes nystatin-t Univers iamcinolone 11-18 riamcinolo it y of cream 18:43: ne 100,000 [place] [address] unit/g-0.1 Medical % topical Branch cream APPLY TOPICALLY TO THE AFFECTED AREA IN THE MORNING AND IN THE EVENING proMETHazin Yes promethazi Univers e 25 mg 11-18 ne 25 mg ity of tablet 18:43: tablet TK [place] 12 1 T PO Q 6 Medical H PRN Branch sulfamethox Yes sulfametho Univers azole-trime 11-18 xazole 800 it y of thoprim 18:43: mg-trimeth [place] 800-160 mg 12 oprim 160 Medi long per tablet mg tablet Bran ch TAKE 1 TABLET BY MOUTH TWICE DAILY traMADoL 50 Yes tramadol Un thomas mg tablet 11-18 50 mg ity of 18:43: tablet TK [place] 12 1 T PO Q 8 Medical H PRN P Branch esomeprazol Yes 40mg Take 40 mg Univers e 40 mg 11-18 by mouth ity of capsule 18:43: in the [place] [address] morning. Medical Branch losartan 50 Yes losartan Un thomas mg tablet 11-18 50 mg ity of 18:43: tablet 12 TAKE 1 Medical TABLET BY Branch MOUTH DAILY meloxicam Yes meloxicam Uni vers 7.5 mg 11-18 7.5 mg ity of tablet 18:43: tablet [place] 12 TAKE 1 Medical TABLET BY Branch MOUTH EVERY DAY mupirocin 2 Yes mupirocin U nivers % ointment 11-18 2 % ity of 18:43: topical [place] 12 ointment Medical APPLY Branch TWICE DAILY Nitrofurant Yes nitrofuran Univers oin&Nit. 11-18 toin ity of Macrocryst 18:43: monohydrat [place] 100 mg 12 e/macrocry Medical capsule stals 100 Branch mg capsule TAKE 1 CAPSULE BY MOUTH EVERY 12 HOURS nystatin-tr Yes nystatin-t Univers iamcinolone 11-18 riamcinolo it y of cream 18:43: ne 100,000 [place] 12 unit/g-0.1 Medical % topical Branch cream APPLY TOPICALLY TO THE AFFECTED AREA IN THE MORNING AND IN THE EVENING proMETHazin Yes promethazi Univers e 25 mg 11-18 ne 25 mg ity of tablet 18:43: tablet TK [place] 12 1 T PO Q 6 Medical H PRN Branch sulfamethox Yes sulfametho [facility] azole-trime 11-18 xazole 800 it y of thoprim 18:43: mg-trimeth [place] 800-160 mg 12 oprim 160 Medi long per tablet mg tablet Bran ch TAKE 1 TABLET BY MOUTH TWICE DAILY traMADoL 50 Yes tramadol Un thomas mg tablet 11-18 50 mg ity of 18:43: tablet TK [place] 12 1 T PO Q 8 Medical H PRN P Branch bisoproloL- Yes 1{tbl} Take 1 Un thomas hydrochloro 11-18 tablet by ity of thiazide 18:43: mouth [place] 5-6.25 mg 11 every Medical per tablet morning. Branc h acetaminoph Yes 500mg Take 500 U nivers en 500 mg 11-18 mg by ity of tablet 18:43: mouth. [place] 11 Medical [place] bisoproloL- Yes 1{tbl} Take 1 Un thomas hydrochloro - tablet by ity of thiazide 18:43: mouth [place] 5-6.25 mg 11 every Medical per tablet morning. Branc h acetaminoph 2021-0 Yes 500mg Take 500 U nivers en 500 mg 9-01 mg by ity of tablet 18:43: mouth. [address] Branch bisoproloL- 2021-0 Yes 1{tbl} Take 1 Un thomas hydrochloro 9-01 tablet by ity of thiazide 18:43: mouth [place] 5-6.25 mg 11 every Medical per tablet morning. Bran h acetaminoph 2021-0 Yes 500mg Take 500 U nivers en 500 mg 9-01 mg by ity of tablet 18:43: mouth. [address] Branch ondansetron 2021-0 Yes [id number] 8mg Take 2 Univers 4 mg 9-01 tablets by ity of disintegrat 00:00: mouth [place] ing tablet 00 every 8 Medica l (eight) Branch hours as needed for Nausea and Vomiting (N/V). ondansetron 2021-0 Yes [id number] 8mg Take 2 Univers 4 mg 9-01 tablets by ity of disintegrat 00:00: mouth [place] ing tablet 00 every 8 Medica l (eight) Branch hours as needed for Nausea and Vomiting (N/V). ondansetron 2021-0 Yes [id number] 8mg Take 2 Univers 4 mg 9-01 tablets by ity of disintegrat 00:00: mouth [place] ing tablet 00 every 8 Medica l (eight) Branch hours as needed for Nausea and Vomiting (N/V). levothyroxi 0 Yes 125ug Take 125 U nivers ne 125 mcg 8-18 mcg by ity of tablet 00:00: mouth [place] 00 every Medical morning. Branch levothyroxi 2021-0 Yes 125ug Take 125 U nivers ne 125 mcg 8-18 mcg by ity of tablet 00:00: mouth [place] 00 every Medical morning. Branch levothyroxi 2021-0 Yes 125ug Take 125 U nivers ne 125 mcg 8-18 mcg by ity of tablet 00:00: mouth [place] 00 every Medical morning. Branch bisoprolol 2021-0 Yes 5mg Take 5 mg Un thomas 5 mg tablet 8-10 by mouth ity of 00:00: every [place] 00 morning. Medical Branch bisoprolol 2021-0 Yes 5mg Take 5 mg Un thomas 5 mg tablet 8-10 by mouth ity of 00:00: every [place] 00 morning. Medical Branch bisoprolol Yes 5mg Take 5 mg Un thomas 5 mg tablet 8-10 by mouth ity of 00:00: every [place] morning. Medical Branch rosuvastati Yes 5mg Take 5 mg U nivers n 5 mg 8-02 by mouth ity of tablet 00:00: every [place] morning. Medical Branch rosuvastati Yes 5mg Take 5 mg U nivers n 5 mg 8-02 by mouth ity of tablet 00:00: every [place] morning. Medical Branch rosuvastati Yes 5mg Take 5 mg U nivers n 5 mg 8-02 by mouth ity of tablet 00:00: every [place] morning. Medical Branch clotrimazol Yes DISSOLVE 1 Univers e 10 mg 6-14 LEISA BY ity of leisa 00:00: MOUTH FOUR [place] TIMES Medical DAILY Branch mesalamine Yes 4.8g Take 4.8 g U nivers 1.2 gram EC 6-14 by mouth ity of tablet 00:00: in the [place] morning. Medical Branch clotrimazol Yes DISSOLVE 1 Univers e 10 mg 6-14 LEISA BY ity of leisa 00:00: MOUTH FOUR [place] TIMES Medical DAILY Branch mesalamine Yes 4.8g Take 4.8 g U nivers 1.2 gram EC 6-14 by mouth ity of tablet 00:00: in the [place] morning. Medical Branch clotrimazol Yes DISSOLVE 1 Univers e 10 mg 6-14 LEISA BY ity of leisa 00:00: MOUTH FOUR [place] TIMES Medical DAILY Branch mesalamine Yes 4.8g Take 4.8 g U nivers 1.2 gram EC 6-14 by mouth ity of tablet 00:00: in the [place] [address] morning. Medical Branch amoxicillin Yes 500mg Take 500 U nivers -pot 6-06 mg by ity of clavulanate 00:00: mouth in [place] 500 mg 00 the Medical 500-125 mg morning Branch tablet and 500 mg in the evening. amoxicillin Yes 500mg Take 500 U nivers -pot 6-06 mg by ity of clavulanate 00:00: mouth in [place] 500 mg 00 the Medical 500-125 mg morning Branch tablet and 500 mg in the evening. amoxicillin 0 Yes 500mg Take 500 U nivers -pot 6-06 mg by ity of clavulanate 00:00: mouth in [place] 500 mg 00 the Medical 500-125 mg morning Branch tablet and 500 mg in the evening. bromphenira 0 Yes TAKE 10 ML Univers mine-pseudo 6-04 BY MOUTH ity of ephedrine-D 00:00: EVERY 6 [place] 2-30-10 00 HOURS Medica l mg/5 mL NEEDED FOR Branch syrup COUGH OR CONGESTION cetirizine 2021-0 Yes 10mg Take 10 mg U nivers 10 mg 6-04 by mouth ity of tablet 00:00: every [place] 00 morning. Medical Branch fluticasone 2021-0 Yes 1{spray Use 1 Un thomas propionate 6-04 } [place] in ity o f 50 00:00: each [place] mcg/actuati 00 nostril in Me dical on nasal the Branch spray morning. bromphenira 2021-0 Yes TAKE 10 ML Univers mine-pseudo 6-04 BY MOUTH ity of ephedrine-D 00:00: EVERY 6 [place] 2-30-10 00 HOURS Medica l mg/5 mL NEEDED FOR Branch syrup COUGH OR CONGESTION cetirizine 2021-0 Yes 10mg Take 10 mg U nivers 10 mg 6-04 by mouth ity of tablet 00:00: every [place] 00 morning. Medical Branch fluticasone 2021-0 Yes 1{spray Use 1 Un thomas propionate 6-04 } [place] in ity o f 50 00:00: each [place] mcg/actuati 00 nostril in Me dical on nasal the Branch spray morning. bromphenira 2021-0 Yes TAKE 10 ML Univers mine-pseudo 6-04 BY MOUTH ity of ephedrine-D 00:00: EVERY 6 [place] M 2-30-10 00 HOURS Medica l mg/5 mL NEEDED FOR Branch syrup COUGH OR CONGESTION cetirizine 2021-0 Yes 10mg Take 10 mg U nivers 10 mg 6-04 by mouth ity of tablet 00:00: every [place] 00 morning. Medical Branch fluticasone 2022-0 Yes 1{spray Use 1 Un thomas propionate 6-04 } [place] in ity o f 50 00:00: each [place] mcg/actuati 00 nostril in Me dical on nasal the Branch spray morning. Voltaren 1 Voltaren 1 0 No Voltaren 1 % % 2-25 % 00:00: 00 Voltaren 1 Voltaren 1 2020-0 No Voltaren 1 % % 2-25 % 00:00: 00 Voltaren 1 Voltaren 1 2020-0 No Voltaren 1 % % 2-25 % 00:00: 00 Voltaren 1 Voltaren 1 2020-0 No Voltaren 1 % % 2-25 % 00:00: 00 Voltaren 1 Voltaren 1 0 No Voltaren 1 % % 2-25 % 00:00: 00 Voltaren 1 Voltaren 1 0 No Voltaren 1 % % 2-25 % 00:00: 00 Meloxicam Meloxicam 0 2020- No 1{table QD Meloxicam 7.5 MG 7.5 MG 2-25 03-27 t} 7.5 MG 00:00: 00:00 00 :00 Lidocaine Lidocaine 2020-0 No Com mon 04-28 Spirit 00:00: - [facility] Celestone Celestone 0 No 6mg Com mon Soluspan Soluspan 04-28 Spirit (Betamethas (Betamethas 00:00: - [facility]I one) one) [facility] Lidocaine Lidocaine 2019-1 No 10mg Com mon 04-27 Spirit 00:00: - [facility] 00 [facility] Celestone Celestone 1 No 6mg Com mon Soluspan Soluspan 208 Spirit (Betamethas (Betamethas 00:00: - [facility]I one) one) 00 [facility] Depo-Medrol Depo-Medrol 2020-0 No 40mg Common (Methylpred (Methylpred 6-11 S pirit nisolone) nisolone) 00:00: - C HI 40mg 40mg 00 [facility] Bupivicaine Bupivicaine 2019-0 No 1mL Common Gambell Gambell 6-11 Spirit 00:00: [facility] LIDOCAINE LIDOCAINE 2020-0 No 1mL Com mon HCL 10MG/ML HCL 10MG/ML 4-09 S pirit 00:00: - [facility] Betamethaso Betamethaso No 1mL Common ne Sodium ne Sodium 4-09 Spiri t Phosphate Phosphate 00:00: - C HI [facility] Betamethaso Betamethaso No 1mg Common ne Sodium ne Sodium 1-10 Spiri t Phosphate Phosphate 00:00: - C HI [facility] LIDOCAINE LIDOCAINE No 10mg Com mon HCL 10MG/ML HCL 10MG/ML 1-10 S pirit 00:00: - [facility] Betamethaso Betamethaso 2017-03 No 1mL Common ne Sodium ne Sodium 0-29 Spiri t Phosphate Phosphate 00:00: - C HI [facility] LIDOCAINE LIDOCAINE 2017-03 No 10mg Com mon HCL 10MG/ML HCL 10MG/ML 0-29 S pirit 00:00: - [facility] esomeprazol 2016-03 Yes 40mg QD Take [address] [facility] (NEXIUM) 0-11 by mouth [facility]ukes 40 MG 14:35: daily. Medical capsule 21 Center levothyroxi 2016-03 Yes 112ug Take [address] ne 0-11 mcg by [employer] (SYNTHROID, 14:35: mouth Medic al LEVOTHROID) 21 Every Center 112 MCG morning on tablet an empty stomach. acetaminoph 2016-03 Yes 500mg Take [address] en 0-11 mg by [facility] (TYLENOL) 14:35: mouth Medical 500 MG 21 every 6 Center tablet (six) hours as needed for Pain. mesalamine 2016-03 Yes 1200mg Take 1,[address] (LIALDA) 0-11 mg by [facility]ukes 1.2 gram EC 14:35: mouth Medic al tablet 21 daily with Center breakfast. bisoprolol- 2016-03 Yes 1{tbl} QD Take [address] hydroCHLORO 0-11 tablet by Chau es thiazide 14:35: mouth Medical (ZIAC) 21 daily. Center 5-6.25 mg per tablet losartan 2016-03 Yes 50mg QD Take [address] (COZAAR) 50 0-11 by mouth Luke s MG tablet 14:35: daily. Medica l 21 [place] bisoprolol- 2016-03 Yes 1{tbl} QD Take [address] hydroCHLORO 0-11 tablet by Chau es thiazide 14:35: mouth Medical (ZIAC) 21 daily. Center 5-6.25 mg per tablet losartan 2016-03 Yes 50mg QD Take [address] (COZAAR) 50 0-11 by mouth Luke s MG tablet 14:35: daily. Medica l 21 [place] esomeprazol 2016-03 Yes 40mg QD Take [address] e (NEXIUM) 0-11 by mouth [facility]ukes 40 MG 14:35: daily. Medical capsule 21 [place] levothyroxi 2016-03 Yes 112ug Take [address] ne 0-11 mcg by [facility]ukes (SYNTHROID, 14:35: mouth Medic al LEVOTHROID) 21 Every Center 112 MCG morning on tablet an empty stomach. acetaminoph 2016-03 Yes 500mg Take [address] en 0-11 mg by [facility]ukes (TYLENOL) 14:35: mouth Medical 500 MG 21 every 6 Center tablet (six) hours as needed for Pain. mesalamine 2016-03 Yes 1200mg Take 1,[address] (LIALDA) 0-11 mg by [facility]ukes 1.2 gram EC 14:35: mouth Medic al tablet 21 daily with Center breakfast. bisoprolol- 2016-03 Yes 1{tbl} QD Take [address] hydroCHLORO 0-11 tablet by Chau es thiazide 14:35: mouth Medical (ZIAC) 21 daily. [place] 5-6.25 mg per tablet losartan 2016-03 Yes 50mg QD Take [address] (COZAAR) 50 0-11 by mouth Luke s MG tablet 14:35: daily. Medica l 21 [place] esomeprazol 2016-03 Yes 40mg QD Take [address] e (NEXIUM) 0-11 by mouth [facility]ukes 40 MG 14:35: daily. Medical capsule 21 [place] levothyroxi 2016-03 Yes 112ug Take [address] ne 0-11 mcg by [facility]ukes (SYNTHROID, 14:35: mouth Medic al LEVOTHROID) 21 Every Center 112 MCG morning on tablet an empty stomach. acetaminoph 2016-03 Yes 500mg Take [address] en 0-11 mg by [facility]ukes (TYLENOL) 14:35: mouth Medical 500 MG 21 every 6 Center tablet (six) hours as needed for Pain. mesalamine 2016- Yes 1200mg Take 1,[address] (LIALDA) 0-11 mg by [facility]ukes 1.2 gram EC 14:35: mouth Medic al tablet 21 daily with Center breakfast. losartan Yes TK 1 T PO Meth ananda (COZAAR) 50 8-[address] MG tablet 00:00: Hospita 00 l bisoprolol Yes TK 1 T PO Me thodi (ZEBETA) 5 8-[address] MG tablet 00:00: Hospita 00 l losartan Yes TK 1 T PO Meth ananda (COZAAR) 50 8-[address] MG tablet 00:00: Hospita 00 l bisoprolol Yes TK 1 T PO Me thodi (ZEBETA) 5 8-[address] MG tablet 00:00: Hospita 00 l losartan Yes TK 1 T PO Meth ananda (COZAAR) 50 8-[address] MG tablet 00:00: Hospita 00 l bisoprolol Yes TK 1 T PO Me thodi (ZEBETA) 5 8-[address] MG tablet 00:00: Hospita 00 l losartan Yes TK 1 T PO Meth ananad (COZAAR) 50 8-[address] MG tablet 00:00: Hospita 00 l bisoprolol Yes TK 1 T PO Me thodi (ZEBETA) 5 8-[address] MG tablet 00:00: Hospita 00 l levothyroxi Yes TK 1 T PO M ethodi ne 8-[address] (SYNTHROID, 00:00: Hospit a LEVOTHROID) 00 l 112 MCG tablet levothyroxi Yes TK 1 T PO M ethodi ne 8-[address] (SYNTHROID, 00:00: Hospit a LEVOTHROID) 00 l 112 MCG tablet levothyroxi Yes TK 1 T PO M ethodi ne 8-[address] (SYNTHROID, 00:00: Hospit a LEVOTHROID) 00 l 112 MCG tablet levothyroxi Yes TK 1 T PO M ethodi ne 8-[address] (SYNTHROID, 00:00: Hospit a LEVOTHROID) 00 l 112 MCG tablet Levothyroxi Levothyroxi No Levothyrox ne Sodium ne Sodium ine Sodium 112 MCG 112 MCG 112 MCG Tobramycin Tobramycin No Tobramycin Nystatin-Tr Nystatin-Tr No Nystatin-T iamcinolone iamcinolone riamcinolo ne Azithromyci Azithromyci No Azithromyc n n in Losartan Losartan No Losartan Potassium Potassium Potassium 50 MG 50 MG 50 MG Mobic Mobic No Mobic Mesalamine Mesalamine No Mesalamine Tramadol Tramadol No Tramadol HCl HCl HCl Bisoprolol Bisoprolol No Bisoprolol Fumarate 5 Fumarate 5 Fumarate 5 MG MG MG Promethazin Promethazin No Promethazi e HCl e HCl ne HCl PrednisoLON PrednisoLON No PrednisoLO E Acetate E Acetate NE Acetate Tramadol Tramadol No Tramadol HCl HCl HCl Meloxicam Meloxicam No Meloxicam 7.5 MG 7.5 MG 7.5 MG Nystatin-Tr Nystatin-Tr No Nystatin-T iamcinolone iamcinolone riamcinolo ne Azithromyci Azithromyci No Azithromyc n n in Losartan Losartan No Losartan Potassium Potassium Potassium 50 MG 50 MG 50 MG Levothyroxi Levothyroxi No Levothyrox ne Sodium ne Sodium ine Sodium 112 MCG 112 MCG 112 MCG Tobramycin Tobramycin No Tobramycin Mesalamine Mesalamine No Mesalamine PrednisoLON PrednisoLON No PrednisoLO E Acetate E Acetate NE Acetate Bisoprolol Bisoprolol No Bisoprolol Fumarate 5 Fumarate 5 Fumarate 5 MG MG MG Promethazin Promethazin No Promethazi e HCl e HCl ne HCl Mobic Mobic No Mobic Tramadol Tramadol No Tramadol HCl HCl HCl Meloxicam Meloxicam No Meloxicam 7.5 MG 7.5 MG 7.5 MG Nystatin-Tr Nystatin-Tr No Nystatin-T iamcinolone iamcinolone riamcinolo ne Azithromyci Azithromyci No Azithromyc n n in Losartan Losartan No Losartan Potassium Potassium Potassium 50 MG 50 MG 50 MG Levothyroxi Levothyroxi No Levothyrox ne Sodium ne Sodium ine Sodium 112 MCG 112 MCG 112 MCG Tobramycin Tobramycin No Tobramycin Mesalamine Mesalamine No Mesalamine PrednisoLON PrednisoLON No PrednisoLO E Acetate E Acetate NE Acetate Bisoprolol Bisoprolol No Bisoprolol Fumarate 5 Fumarate 5 Fumarate 5 MG MG MG Promethazin Promethazin No Promethazi e HCl e HCl ne HCl [facility] Tramadol Tramadol No Tramadol HCl HCl HCl Meloxicam Meloxicam No Meloxicam 7.5 MG 7.5 MG 7.5 MG Bisoprolol Bisoprolol No Bisoprolol Fumarate 5 Fumarate 5 Fumarate 5 MG MG MG Losartan Losartan No Losartan Potassium Potassium Potassium 50 MG 50 MG 50 MG Azithromyci Azithromyci No Azithromyc n n in [facility] PrednisoLON PrednisoLON No PrednisoLO E Acetate E Acetate NE Acetate Levothyroxi Levothyroxi No Levothyrox ne Sodium ne Sodium ine Sodium 112 MCG 112 MCG 112 MCG Promethazin Promethazin No Promethazi e HCl e HCl ne HCl Tobramycin Tobramycin No Tobramycin Mesalamine Mesalamine No Mesalamine Nystatin-Tr Nystatin-Tr No Nystatin-T iamcinolone iamcinolone riamcinolo ne [facility] Losartan Losartan No Losartan Potassium Potassium Potassium 50 MG 50 MG 50 MG traMADol traMADol No traMADol HCl HCl HCl Meloxicam Meloxicam No Meloxicam 7.5 MG 7.5 MG 7.5 MG Bisoprolol Bisoprolol No Bisoprolol Fumarate 5 Fumarate 5 Fumarate 5 MG MG MG Losartan Losartan No Losartan Potassium Potassium Potassium 50 MG 50 MG 50 MG Azithromyci Azithromyci No Azithromyc n n in [facility] No [facility] prednisoLON prednisoLON No prednisoLO E Acetate E Acetate NE Acetate Levothyroxi Levothyroxi No Levothyrox ne Sodium ne Sodium ine Sodium 112 MCG 112 MCG 112 MCG Promethazin Promethazin No Promethazi e HCl e HCl ne HCl Tobramycin Tobramycin No Tobramycin Tobramycin Tobramycin No Tobramycin Mesalamine Mesalamine No Mesalamine Nystatin-Tr Nystatin-Tr No Nystatin-T iamcinolone iamcinolone riamcinolo ne Levothyroxi Levothyroxi No Levothyrox ne Sodium ne Sodium ine Sodium 125 MCG 125 MCG 125 MCG Losartan Losartan No Losartan Potassium Potassium Potassium 50 MG 50 MG 50 MG traMADol traMADol No traMADol HCl HCl HCl Levothyroxi Levothyroxi No Levothyrox ne Sodium ne Sodium ine Sodium 112 MCG 112 MCG 112 MCG Promethazin Promethazin No Promethazi e HCl e HCl ne HCl prednisoLON prednisoLON No prednisoLO E Acetate E Acetate NE Acetate Rosuvastati Rosuvastati No Rosuvastat n Calcium 5 n Calcium 5 in Calcium MG MG 5 MG Tobramycin Tobramycin No Tobramycin Azithromyci Azithromyci No Azithromyc n n in Mesalamine Mesalamine No Mesalamine Nystatin-Tr Nystatin-Tr No Nystatin-T iamcinolone iamcinolone riamcinolo ne Meloxicam Meloxicam No Meloxicam 7.5 MG 7.5 MG 7.5 MG Mobic Mobic No Mobic Bisoprolol Bisoprolol No Bisoprolol Fumarate 5 Fumarate 5 Fumarate 5 MG MG MG Promethazin Promethazin No Promethazi e HCl e HCl ne HCl Azithromyci Azithromyci No Azithromyc n n in Bisoprolol Bisoprolol No Bisoprolol Fumarate 5 Fumarate 5 Fumarate 5 MG MG MG Mesalamine Mesalamine No Mesalamine PrednisoLON PrednisoLON No PrednisoLO E Acetate E Acetate NE Acetate Nystatin-Tr Nystatin-Tr No Nystatin-T iamcinolone iamcinolone riamcinolo ne Tramadol Tramadol No Tramadol HCl HCl HCl Promethazin Promethazin No Promethazi e HCl e HCl ne HCl Mesalamine Mesalamine No Mesalamine Losartan Losartan No Losartan Potassium Potassium Potassium 50 MG 50 MG 50 MG Bisoprolol Bisoprolol No Bisoprolol Fumarate 5 Fumarate 5 Fumarate 5 MG MG MG Tobramycin Tobramycin No Tobramycin Levothyroxi Levothyroxi No Levothyrox ne Sodium ne Sodium ine Sodium 112 MCG 112 MCG 112 MCG Mobic Mobic No Mobic Tramadol Tramadol No Tramadol HCl HCl HCl Azithromyci Azithromyci No Azithromyc n n in PrednisoLON PrednisoLON No PrednisoLO E Acetate E Acetate NE Acetate Nystatin-Tr Nystatin-Tr No Nystatin-T iamcinolone iamcinolone riamcinolo ne Promethazin Promethazin No Promethazi e HCl e HCl ne HCl Mesalamine Mesalamine No Mesalamine Losartan Losartan No Losartan Potassium Potassium Potassium 50 MG 50 MG 50 MG Bisoprolol Bisoprolol No Bisoprolol Fumarate 5 Fumarate 5 Fumarate 5 MG MG MG Tobramycin Tobramycin No Tobramycin Levothyroxi Levothyroxi No Levothyrox ne Sodium ne Sodium ine Sodium 112 MCG 112 MCG 112 MCG Mobic Mobic No Mobic Tramadol Tramadol No Tramadol HCl HCl HCl Azithromyci Azithromyci No Azithromyc n n in PrednisoLON PrednisoLON No PrednisoLO E Acetate E Acetate NE Acetate Nystatin-Tr Nystatin-Tr No Nystatin-T iamcinolone iamcinolone riamcinolo ne Immunizations Ordered Immunization Filled Immunization Date Status Commen ts Source Name Name Lidocaine Lidocaine 2020-04-28 Completed [facility] 10:38:00 [facility] Lidocaine Lidocaine 2020-04-28 Completed [facility] 10:38:00 [facility] Lidocaine Lidocaine 2020-04-28 Completed [facility] 10:38:00 [facility] Lidocaine Lidocaine 2020-04-28 Completed [facility] 10:38:00 [facility] Lidocaine Lidocaine 2020-04-28 Completed [facility] 10:38:00 [facility] Lidocaine Lidocaine 2020-04-28 Completed [facility] 10:38:00 [facility] Celestone Soluspan Celestone Soluspan 2020-04-28 Completed [facility] (Betamethasone) (Betamethasone) 10:37:00 - [facility] Celestone Soluspan Celestone Soluspan 2020-04-28 Completed [facility] (Betamethasone) (Betamethasone) 10:37:00 - I [facility] Celestone Soluspan Celestone Soluspan 2020-04-28 Completed [facility] (Betamethasone) (Betamethasone) 10:37:00 - I [facility] Celestone Soluspan Celestone Soluspan 2020-04-28 Completed [facility] (Betamethasone) (Betamethasone) 10:37:00 - I [facility] Celestone Soluspan Celestone Soluspan 2020-04-28 Completed [facility] (Betamethasone) (Betamethasone) 10:37:00 - [facility] Soluspan Celestone Soluspan 2020-04-28 Completed [facility] (Betamethasone) (Betamethasone) 10:37:00 - [facility] Lidocaine Lidocaine 2020-02-25 Completed [facility] 10:10: - [facility] Lidocaine Lidocaine 2020-02-25 Completed [facility] 10:10: - [facility] Lidocaine Lidocaine 2020-02-25 Completed [facility] 10:10: - [facility] Lidocaine Lidocaine 2020-02-25 Completed [facility] 10:10: - [facility] Lidocaine Lidocaine 2020-02-25 Completed [facility] 10:10: - [facility] Lidocaine Lidocaine 2020-02-25 Completed [facility] 10:10: - [facility] Lidocaine Lidocaine 2020-02-25 Completed [facility] 10:: - [facility] Celestone Soluspan Celestone Soluspan 2020-02-25 Completed [facility] (Betamethasone) (Betamethasone) 10:08:00 - [facility] Soluspan Celestone Soluspan 2020-02-25 Completed [facility] (Betamethasone) (Betamethasone) 10:08:00 - [facility] Soluspan Celestone Soluspan 2020-02-25 Completed [facility] (Betamethasone) (Betamethasone) 10:08:00 - [facility] Soluspan Celestone Soluspan 2020-02-25 Completed [facility] (Betamethasone) (Betamethasone) 10:08:00 - [facility] Soluspan Celestone Soluspan 2020-02-25 Completed [facility] (Betamethasone) (Betamethasone) 10:08:00 - [facility] Soluspan Celestone Soluspan 2020-02-25 Completed [facility] (Betamethasone) (Betamethasone) 10:08:00 - [facility] Soluspan Celestone Soluspan 2020-02-25 Completed [facility] (Betamethasone) (Betamethasone) 10:08:00 - CH I [facility] Bupivicaine Gambell Bupivicaine Gambell 2019-08-29 Completed [facility] 10:15:00 - [facility] Depo-Medrol Depo-Medrol 2019-08-29 [facility] (Methylpred[facility]one[facility] (Methylprednisolone) 10:15: - [facility] 40mg 40mg [facility] Bupivicaine Gambell Bupivicaine Gambell 2019-08-29 Completed [facility] 10:15: - [facility] Depo-Medrol Depo-Medrol 2019-08-29 [facility] (Methylprednisolone) (Methylprednisolone) 10:15: - [facility] 40mg 40mg [facility] Bupivicaine Gambell Bupivicaine Gambell 2019-08-29 Completed [facility] 10:: - [facility] Depo-Medrol Depo-Medrol 2019-08-29 Completed [facility] (Methylprednisolone) (Methylprednisolone) 10:: - [facility] 40mg 40mg [facility] Bupivicaine Gambell Bupivicaine Gambell 2019-08-29 Completed [facility] 10:15: - [facility] Depo-Medrol Depo-Medrol 2019-08-29 Com[facility] (Methylprednisolone) (Methylprednisolone) 10:: - [facility] 40mg 40mg [facility] Depo-Medrol Depo-Medrol 2019-08-29 Com[facility] (Methylprednisolone) (Methylprednisolone) 10:: - [facility] 40mg 40mg [facility] Bupivicaine Gambell Bupivicaine Gambell 2019-08-29 Completed [facility] 10:15: - [facility] Bupivicaine Gambell Bupivicaine Gambell 2019-08-29 Completed [facility] 10:15: - [facility] Depo-Medrol Depo-Medrol 2019-08-29 Com[facility] (Methylprednisolone) (Methylprednisolone) 10:15: - [facility] 40mg 40mg [facility] Bupivicaine Gambell Bupivicaine Gambell 2019-08-29 Completed [facility] 10:15: - [facility] Depo-Medrol Depo-Medrol 2019-08-29 [facility] (Methylprednisolone) (Methylprednisolone) 10:15:00 - [facility] LIDOCAINE HCL 10MG/ML LIDOCAINE HCL 2019-06-27 Completed [facility] 10MG/ML 11:12:00 [facility] LIDOCAINE HCL 10MG/ML LIDOCAINE HCL 2019-06-27 Completed [facility] 10MG/ML 11:12:00 [facility] LIDOCAINE HCL 10MG/ML LIDOCAINE HCL 2019-06-27 Completed [facility] 10MG/ML 11:12:00 [facility] LIDOCAINE HCL 10MG/ML LIDOCAINE HCL 2019-06-27 Completed [facility] 10MG/ML 11:12:00 [facility] LIDOCAINE HCL 10MG/ML LIDOCAINE HCL 2019-06-27 Completed [facility] 10MG/ML 11:12:00 [facility] LIDOCAINE HCL 10MG/ML LIDOCAINE HCL 2019-06-27 Completed [facility] 10MG/ML 11:12:00 [facility] LIDOCAINE HCL 10MG/ML LIDOCAINE HCL 2019-06-27 Completed [facility] 10MG/ML 11:12:00 [facility] Betamethasone Sodium Betamethasone Sodium 2019-06-27 Completed [facility] Phosphate Phosphate 11:11:00 [facility] Betamethasone Sodium Betamethasone Sodium 2019-06-27 Completed [facility] Phosphate Phosphate 11:11:00 [facility] Betamethasone Sodium Betamethasone Sodium 2019-06-27 Completed [facility] Phosphate Phosphate 11:11:00 [facility] Betamethasone Sodium Betamethasone Sodium 2019-06-27 Completed [facility] Phosphate Phosphate 11:11:00 [facility] Betamethasone Sodium Betamethasone Sodium 2019-06-27 Completed [facility] Phosphate Phosphate 11:11:00 [facility] Betamethasone Sodium Betamethasone Sodium 2019-06-27 Completed [facility] Phosphate Phosphate 11:11:00 [facility] Betamethasone Sodium Betamethasone Sodium 2019-06-27 Completed [facility] Phosphate Phosphate 11:11:00 [facility] LIDOCAINE HCL 10MG/ML LIDOCAINE HCL 2018-03-29 Completed [facility] 10MG/ML 09:31:00 [facility] LIDOCAINE HCL 10MG/ML LIDOCAINE HCL 2018-03-29 Completed [facility] 10MG/ML 09:31:00 [facility] LIDOCAINE HCL 10MG/ML LIDOCAINE HCL 2018-03-29 Completed [facility] 10MG/ML 09:31:00 - [facility] LIDOCAINE HCL 10MG/ML LIDOCAINE HCL 2018-03-29 Completed [facility] 10MG/ML 09:31:00 [facility] LIDOCAINE HCL 10MG/ML LIDOCAINE HCL 2018-03-29 Completed [facility] 10MG/ML 09:31:00 - [facility] LIDOCAINE HCL 10MG/ML LIDOCAINE HCL 2018-03-29 Completed [facility] 10MG/ML 09:31:00 [facility] LIDOCAINE HCL 10MG/ML LIDOCAINE HCL 2018-03-29 Completed [facility] 10MG/ML 09:31: [facility] Betamethasone Sodium Betamethasone Sodium 2018-03-29 Completed [facility] Phosphate Phosphate 09:30:00 [facility] Betamethasone Sodium Betamethasone Sodium 2018-03-29 Completed [facility] Phosphate Phosphate 09:30:00 - [facility] Betamethasone Sodium Betamethasone Sodium 2018-03-29 Completed [facility] Phosphate Phosphate 09:30:00 [facility] Betamethasone Sodium Betamethasone Sodium 2018-03-29 Completed [facility] Phosphate Phosphate 09:30:00 - [facility] Betamethasone Sodium Betamethasone Sodium 2018-03-29 Completed [facility] Phosphate Phosphate 09:30:00 [facility] Betamethasone Sodium Betamethasone Sodium 2018-03-29 Completed [facility] Phosphate Phosphate 09:30:00 - [facility] Betamethasone Sodium Betamethasone Sodium 2018-03-29 Completed [facility] Phosphate Phosphate 09:30:00 [facility] LIDOCAINE HCL 10MG/ML LIDOCAINE HCL 2018-01-15 Completed [facility] 10MG/ML 12:51:00 [facility] LIDOCAINE HCL 10MG/ML LIDOCAINE HCL 2018-01-15 Completed [facility] 10MG/ML 12:51:00 [facility] LIDOCAINE HCL 10MG/ML LIDOCAINE HCL 2018-01-15 Completed [facility] 10MG/ML 12:51:00 [facility] LIDOCAINE HCL 10MG/ML LIDOCAINE HCL 2018-01-15 Completed [facility] 10MG/ML 12:51:00 - [facility] LIDOCAINE HCL 10MG/ML LIDOCAINE HCL 2018-01-15 Completed [facility] 10MG/ML 12:51:00 [facility] LIDOCAINE HCL 10MG/ML LIDOCAINE HCL 2018-01-15 Completed [facility] 10MG/ML 12:51:00 [facility] LIDOCAINE HCL 10MG/ML LIDOCAINE HCL 2018-01-15 Completed [facility] 10MG/ML 12:51:00 - [facility] Betamethasone Sodium Betamethasone Sodium 2018-01-15 Completed [facility] Phosphate Phosphate 12:50:00 - [facility] Betamethasone Sodium Betamethasone Sodium 2018-01-15 Completed [facility] Phosphate Phosphate 12:50:00 [facility] Betamethasone Sodium Betamethasone Sodium 2018-01-15 Completed [facility] Phosphate Phosphate 12:50:00 [facility] Betamethasone Sodium Betamethasone Sodium 2018-01-15 Completed [facility] Phosphate Phosphate 12:50:00 - [facility] Betamethasone Sodium Betamethasone Sodium 2018-01-15 Completed [facility] Phosphate Phosphate 12:50:00 - [facility] Betamethasone Sodium Betamethasone Sodium 2018-01-15 Completed [facility] Phosphate Phosphate 12:50:00 [facility] Betamethasone Sodium Betamethasone Sodium 2018-01-15 Completed [facility] Phosphate Phosphate 12:50:00 [facility] Vital Signs Vital Name Observation Time Observation Value Comments Source Systolic blood 2021-12-22 23:01:00 130 mm[Hg] Univer sity [facility] Diastolic blood 2021-12-22 23:01:00 85 mm[Hg] Unive [facility] Heart rate 2021-12-22 23:01:00 73 /min [facility] Body temperature 2021-12-22 23:01:00 36.94 Stephanie [facility] Respiratory rate 2021-12-22 23:01:00 14 /min [facility] Body height 2021-12-22 23:01:00 154.9 cm [facility] Body weight 2021-12-22 23:01:00 85.594 kg [facility] BMI 2021-12-22 23:01:00 35.65 kg/m2 [facility] Oxygen saturation in 2021-12-22 23:01:00 99 /min [facility] blood by [facility] Pulse oximetry Branch Systolic blood 2021-11-18 23:41:00 155 mm[Hg] Univer sity of pressure [facility] Diastolic blood 2021-11-18 23:41:00 99 mm[Hg] Unive rsity of [facility] Heart rate 2021-11-18 23:41:00 86 /min [facility] Body temperature 2021-11-18 23:41:00 37 Stephanie [facility] Respiratory rate 2021-11-18 23:41:00 16 /min [facility] Body height 2021-11-18 23:41:00 154.9 cm Universi ty [facility] Body weight 2021-11-18 23:41:00 85.775 kg [facility] ty [facility] BMI 2021-11-18 23:41:00 35.73 kg/m2 [facility] Oxygen saturation in 2021-11-18 23:41:00 98 /min [facility] by [facility] Pulse oximetry Branch height 2020-07-13 08:15:00 61 [in_i] [facility] weight 2020-07-13 08:15:00 190 [lb_av] [facility] temperature 2020-07-13 08:15:00 97.1 [degF] [facility] bmi 2020-07-13 08:15:00 35.9 kg/m2 [facility] blood pressure 2020-07-13 08:15:00 122 mm[Hg] [facility] - systolic [facility] blood pressure 2020-07-13 08:15:00 84 mm[Hg] [facility] - diastolic [facility] height 2020-05-14 10:30:00 61 [in_i] [facility] weight 2020-05-14 10:30:00 190 [lb_av] [facility] bmi 2020-05-14 10:30:00 35.90 kg/m2 [facility] blood pressure 2020-05-14 10:30:00 137 mm[Hg] [facility] - systolic [facility] blood pressure 2020-05-14 10:30:00 91 mm[Hg] [facility] - diastolic [facility] height 2020-04-28 10:00:00 61 [in_i] [facility] weight 2020-04-28 10:00:00 190 [lb_av] [facility] temperature 2020-04-28 10:00:00 97.5 [degF] [facility] bmi 2020-04-28 10:00:00 35.9 kg[facility]m2 [facility] blood pressure 2020-04-28 10:00:00 126 mm[Hg] [facility] - systolic [facility] blood pressure 2020-04-28 10:00:00 80 mm[Hg] [facility] - diastolic [facility] height 2020-02-25 09:45:00 61 [in_i] [facility] weight 2020-02-25 09:45:00 186 [lb_av] [facility] temperature 2020-02-25 09:45:00 97.5 [degF] [facility] bmi 2020-02-25 09:45:00 35.14 kg/m2 [facility] blood pressure 2020-02-25 09:45:00 126 mm[Hg] [facility] - systolic [facility] blood pressure 2020-02-25 09:45:00 77 mm[Hg] [facility] - diastolic [facility] Systolic (mm Hg) 2022-06-20 20:54:00 Tomasz [facility] Diastolic (mm Hg) 2022-06-20 20:54:00 Mem [facility] Heart Rate 2022-06-20 20:54:00 [facility] Height 2022-06-20 20:54:00 5 [ft_i] [facility] Weight 2022-06-20 20:54:00 [facility] BMI Calculated 2022-06-20 20:54:00 [facility] Systolic (mm Hg) 2022-06-17 15:36:00 [facility] [place] Diastolic (mm Hg) 2022-06-17 15:36:00 [facility] Heart Rate 2022-06-17 15:36:00 [facility] Height 2022-06-17 15:36:00 5 [ft_i] [facility] Weight 2022-06-17 15:36:00 [facility] BMI Calculated 2022-06-17 15:36:00 [facility] Procedures Procedure Date / Time Performing Clinician Source Performed ASSIGNMENT OF BENEFITS 2020-02-05 14:56:29 Doctor Unassigned, [facility] NO SHOW OR MISSED 2019-12-31 13:06:48 Doctor Unassigned, [facility] APPOINTMENT POLICY [facility] ACKNOWLEDGEMENT Cholecystectomy<sup>3</sup Memor [facility] > [facility] [place] section<sup>2</sup> Carpal tunnel [facility] release<sup>1</sup> Plan of Care Planned Activity Planned Date Details Comments Source Future Scheduled 2022-10-21 [facility] Test 04:06:57 malignant neoplasm of colon (procedure) [code = 895420356] Future Scheduled 2022-10-21 [facility] Test 04:06:57 malignant neoplasm of colon (procedure) [code = 993838597] Future Scheduled 2022-10-21 [facility] Test 04:06:57 malignant neoplasm of colon (procedure) [code = 396602561] Future Scheduled 2022-10-21 COVID-19 VACCINE (#1) [facility] Test 04:06:57 [code = COVID-19 VACCINE (#1)] Future Scheduled 2022-10-21 [facility] Test 04:06:57 malignant neoplasm of cervix (procedure) [code = 686817278] Future Scheduled 2022-10-21 BREAST CANCER [facility] Test 04:06:57 SCREENING [code = BREAST CANCER SCREENING] Future Scheduled 2022-10-21 [facility] Test 04:06:57 malignant neoplasm of colon (procedure) [code = [id number]] Future Scheduled 2022-10-21 [facility] Test 04:06:57 malignant neoplasm of colon (procedure) [code = 792774031] Future Scheduled 2022-10-21 SHINGLES [facility]ACCINES ([facility] 04:06:57 of 2) [code = SHINGLES VACCINES (1 of 2)] Future Scheduled 2022-10-21 IN[facility]UENZA VACCINE [facility] 04:06:57 [code = INFLUENZA VACCINE] Future Scheduled 2022-09-02 [facility] Test 05:03:19 malignant neoplasm of colon (procedure) [code = 239462825] Future Scheduled 2022-09-02 [facility] Test 05:03:19 malignant neoplasm of colon (procedure) [code = 586943021] Future Scheduled 2022-09-02 [facility] Test 05:03:19 malignant neoplasm of colon (procedure) [code = 457036000] Future Scheduled 2022-09-02 COVID-19 VACCINE (#1) [facility] Test 05:03:19 [code = COVID-19 VACCINE (#1)] Future Scheduled 2022-09-02 [facility] Test 05:03:19 malignant neoplasm of cervix (procedure) [code = 156823237] Future Scheduled 2022-09-02 BREAST CANCER [facility] Test 05:03:19 SCREENING [code = BREAST CANCER SCREENING] Future Scheduled 2022-09-02 [facility] Test 05:03:19 malignant neoplasm of colon (procedure) [code = [id number]] Future Scheduled 2022-09-02 [facility] Test 05:03:19 malignant neoplasm of colon (procedure) [code = 209240790] Future Scheduled 2022-09-02 SHINGLES VACCINES (1 [facility] 05:03:19 of 2) [code = SHINGLES VACCINES (1 of 2)] Future Scheduled 2022-09-02 [facility]ACCINE [facility] 05:03:19 [code = INFLUENZA VACCINE] Future Scheduled 2021-01-20 COVID-19 VACCINE (1) [facility] 16:15:26 [code = COVID-19 VACCINE (1)] Future Scheduled 2021-01-20 Screening for [facility] Test 16:15:26 malignant neoplasm of cervix (procedure) [code = 100152331] Future Scheduled 2021-01-20 BREAST CANCER [facility] Test 16:15:26 SCREENING [code = BREAST CANCER SCREENING] Future Scheduled 2021-01-20 COLONOSCOPY SCREENING [facility] Test 16:15:26 [code = COLONOSCOPY SCREENING] Future Scheduled 2021-01-[address] [facility] Test 16:15:26 (#1) [code = SHINGLES VACCINES (#1)] Future Scheduled 2021-01-[address] [facility] Test 16:15:26 [code = INFLUENZA VACCINE] Future Scheduled 2021-01-20 COVID-19 VACCINE (1) Met [facility] Test 16:15:26 [code = COVID-19 VACCINE (1)] Future Scheduled 2021-01-20 Screening for [facility] Test 16:15:26 malignant neoplasm of cervix (procedure) [code = 085167266] Future Scheduled 2021-01-20 BREAST CANCER [facility] Test 16:15:26 SCREENING [code = BREAST CANCER SCREENING] Future Scheduled 2021-01-20 COLONOSCOPY SCREENING [facility] Test 16:15:26 [code = COLONOSCOPY SCREENING] Future Scheduled 2021-01-[address] [facility] Test 16:15:26 (#1) [code = SHINGLES VACCINES (#1)] Future Scheduled 2021-01-[address] [facility] Test 16:15:26 [code = INFLUENZA VACCINE] Future Scheduled 2020-12-[address] [facility] Test 00:[facility]:00 malignant neoplasm of [facility] Center breast (procedure) [code = 486766628] Future Scheduled 2020-11-[address] [facility] Test 00:00:00 (#1) [code = Medical Center INFLUENZA VACCINE (#1)] Future Scheduled 2020-03-[address] [facility] Test 00:00:00 (12+) [code = [facility] DEPRESSION SCREENING (12+)] Future Scheduled 2015 SHINGLES VACCINES ([address] [facility] Test 00:00:00 of 2) [code = Medical Center SHINGLES VACCINES (1 of 2)] Future Scheduled [address] [facility] Test 00:00:00 (procedure) [code = Medical Center 42691244] Future Scheduled [address] [facility] Test 00:00:00 [facility]procedure) [code = 595882348] Future Scheduled 1984 DTAP/TDAP/TD VACCINES [facility] Test 00:00:00 (1 - Tdap) [code = Medical C enter DTAP/TDAP/TD VACCINES (1 - Tdap)] Future Scheduled 1983 HEPATITIS C SCREENING [facility] Test 00:00:00 [code = HEPATITIS C Medical Center SCREENING] Future Scheduled 1977 COVID-19 VACCINE (1) [facility] Test 00:00:00 [code = COVID-[address] VACCINE (1)] Future Scheduled [address] [facility] Test 00:00:00 malignant neoplasm of [facility] colon (procedure) [code = 557877981] Encounters Start End Encounter Admission Attending Care Care Encounter Source Date/Time Date/Time Type Type Clinicians Facility Department ID 2022-04-25 Outpatient Kattegummul STLMLC STLC [id number] Common 15:36:01 a, Bobby [id number] [facility] 2021-04-14 Outpatient Kattegummul STLMLC STLMLC [id number] Common 12:09:15 aBobby [id number] [facility] 2022-08-26 2022-08-26 Ambulatory MHIE MNA [id number] Memoria 15:15:00 15:15:00 Pre-Reg Neurology 02 jono ShepardHartfield [place] 2022-08-26 2022-08-26 Ambulatory MHIE MNA [id number] Memoria 15:15:00 15:15:00 Pre-Reg Neurology 02 jono Camille [place] 2022-08-26 2022-08-26 Outpatient MHIE MHIE [id number] Memoria 10:15:00 10:15:00 Rikki jono Guer[place] 2022-08-26 2022-08-26 [facility] [id number] 10:15:00 10:15:00 Jam Espitia 2022-06-20 2022-06-21 Outpatient MHIE MNA [id number] Memoria 21:00:00 04:59:59 Neurology 01 l Camille Guerrier 2022-06-20 2022-06-21 Outpatient MHIE MNA [id number] Memoria 21:00:00 04:59:59 Neurology 01 l Camille Guerrier 2022-06-20 2022-06-20 Outpatient CORINA DavenportMISCHER MHMISCHER [id number] 16:00:00 23:59:59 Jam 01 Omkar 2022-06-20 2022-06-20 Outpatient MHIE MHIE [id number] Memoria 16:00:00 16:00:00 01 jono Guerrier 2022-06-17 2022-06-18 Outpatient MHIE MNA [id number] Memoria 15:30:00 04:59:59 Neurology 00 l Camille Guerrier 2022-06-17 2022-06-18 Outpatient MHIE MNA [id number] Memoria 15:30:00 04:59:59 Neurology 00 l Camille Guerrier 2022-06-17 2022-06-17 Outpatient SPENCER DavenportSCHER MHMISCHER [id number] 10:30:00 23:59:59 Jam 00 Omkar 2022-06-17 2022-06-17 Outpatient MHIE MHIE [id number] Memoria 10:30:00 10:30:00 00 jono [place] 2022-04-27 2022-04-27 (TEL) ST[facility] [id number] Co mmon 00:00:00 00:00:00 Spirit - [facility] 2021-12-22 2021-12-22 Outpatient Deana DOWELL [facility] [id number] Univers 18:00:00 18:50:13 MEKHI vee [facility] 2021-12-22 2021-12-22 Urgent Mekhi Dowell [facility] 1.2.840. 114 [id number] Univers 18:00:00 18:50:13 [facility] [id number] [facility] 4.2.7.2.686 Gee as BOB?BLEA [phone] De dicguru [address] MEDICAL OFFICE BUILDING 2021-11-18 2021-11-18 Outpatient R DENA [facility] [id number] Univers 18:20:00 19:06:27 ZENAIDA ity [facility] 2021-11-18 2021-11-18 Urgent Estefania Sanchez [facility] 1.2.840.11 [id number] Univers 18:20:00 19:06:27 Chandan Fernandes [facility] [id number] ity [facility] 4.2.7.2.686 Gee as BOB?BLEA [phone] [address] MEDICAL OFFICE [facility] 2021-04-17 2021-04-17 Laboratory Only, Adc Test [facility] 1.2.840. 114 [id number] Univers 08:45:00 09:00:00 Only Nicole Davenport [place] [id number] ity [facility] 4.2.7.2.686 [facility] [phone] [address] 2021-04-17 2021-04-17 Outpatient R HARESH [facility] [id number] Univers 08:45:00 08:45:00 NICOLE marlyn [facility] 2020-12-22 2020-12-22 Laboratory Only, Ang Db Test [facility] 1.2.8 40.114 [id number] Univers 16:10:52 16:25:52 Only Asya [facility] [id number] ity [facility] 4.2.7.2.686 Gee as Bob?Blea [phone] [address] Medical Office Building 2020-12-22 2020-12-22 Outpatient R [facility] [id number] Univers 16:15:00 16:15:00 ity [facility] 2020-07-13 2020-07-13 [facility] [id number] Co mmon 00:00:00 00:00:00 VISIT EST Spir it PT LEVEL 3 - [facility] 2020-07-13 2020-07-13 (TEL) [facility] [id number] Co mmon 00:00:00 00:00:00 [facility] 2020-07-06 2020-07-06 (TEL) STLMLC STLMLC [id number] Co mmon 00:00:00 00:00:00 [facility] 2020-06-09 2020-06-09 (TEL) STLMLC STLMLC [id number] Co mmon 00:00:00 00:00:00 [facility] 2020-05-14 2020-05-14 OFFICE STLMLC STLMLC [id number] Co mmon 00:00:00 00:00:00 VISIT EST Spir it PT LEVEL [address] [place] [address] 2020-05-08 2020-05-08 (TEL) STLMLC STLMLC [id number] Co mmon 00:00:00 00:00:00 [facility] 2020-04-28 2020-04-28 OFFICE STLMLC STLMLC [id number] Co mmon 00:00:00 00:00:00 VISIT EST Spir it PT LEVEL 3 [facility] 2020-03-26 2020-03-26 Laboratory Only, [facility] 1.2.840.114 [id number] 09:55:09 10:10:09 Only Test [place] [id number] [place] 4.2.7.2.686 [place] [phone] [facility] 2020-03-26 2020-03-26 Laboratory Only, [facility] Test [facility] 1.2.840. 114 [id number] [facility] 09:55:09 10:10:09 Only Nicole Davenport [place] [id number] [facility] 4.2.7.[address] [place] [phone] 2020-03-26 2020-03-26 Outpatient R [facility] [id number] Univers 09:30:00 09:30:00 ity [facility] 2020-03-06 2020-03-06 Laboratory Only, [facility] 1.2.840.114 [id number] 09:15:02 09:30:02 Only Test [place] [id number] [place] 4.2.7.2.686 [place] [id number] [facility] 2020-03-06 2020-03-06 Laboratory Only, Adc Test [facility] 1.2.840. 114 [id number] Univers 09:15:02 09:30:02 Only Nicole Davenport Angelo 350.1.13.10 ity of [place] 4.2.7.2.686 [facility] [phone] [address] 2020-03-06 2020-03-06 Outpatient R [facility] [id number] Univers 09:00:00 09:00:00 ity of [facility] 2020-02-25 2020-02-25 (IN/ASP) STLMLC STLMLC [id number] C ommon 00:00:00 00:00:00 INJ ASP [facility] 2020-02-18 2020-02-18 Outpatient STLMLC STLMLC [id number] Common 00:00:00 00:00:00 [facility] 2020-02-05 2020-02-05 Laboratory Only, [facility] 1.2.840.114 [id number] 08:57:44 09:12:44 Only Test Angelo 350.1.13.10 [place] 4.2.7.2.686 [place] [id number] [facility] 2020-02-05 2020-02-05 Laboratory Only, [facility] Test [facility] 1.2.840. 114 [id number] Univers 08:57:44 09:12:44 Only Haresh Nicole Stephens [id number] ity of [place] 4.2.7.2.686 [facility] [phone] [address] 2020-02-05 2020-02-05 Outpatient R HARESH [facility] [id number] Univers 08:45:00 08:45:00 NICOLE gutierrez [facility] 2020-02-05 2020-02-05 Orders Doctor BONILLA 1.2.840.114 [id number] 00:00:00 00:00:00 Only Unassigned, [place] 350.1.13.10 [place] [facility] 4.2.7.2.686 [id number] [id number] 2020-02-05 2020-02-05 Orders Doctor BONILLA 1.2.840.114 [id number] [facility] 00:00:00 00:00:00 Only Unassigned, [place] 350.1.13.10 ity of [place] [facility] 4.2.7.2.686 Gee as [phone] [address] 2020-01-01 2020-01-01 Telephone TimiCHAD zhang 1.2.558.245 [id number] 00:00:00 00:00:00 Yuly [place] 350.1.13.10 [facility]OSPITAL 42.7.2.686 [id number] [id number] 2020-01-01 2020-01-01 Telephone Timi CHAD 1.2.932.951 [id number] [facility] 00:00:00 00:00:00 Yuly [place] 350.1.13.10 it y of HOSPITAL 4.2.7.2.686 Gee as [phone] [address] 2019-12-31 2019-12-31 Laboratory Only, [facility] 1.2.840.114 [id number] 08:07:44 08:22:44 Only Test Angelo 350.1.13.10 [place] 4.2.7.2.686 [place] [phone] [facility] 2019-12-31 2019-12-31 Laboratory Only, Adc Test [facility] 1.2.840. 114 [id number] [facility] 08:07:44 08:22:44 Only Vanemonie Nicole [place] 350.1.13.10 ity of [place] 4.2.7.2.686 [facility] [phone] [address] 2019-12-31 2019-12-31 Outpatient R [facility] [id number] Univers 08:00:00 08:00:00 ity of [facility] 2019-12-31 2019-12-31 Orders Doctor CHAD 1.2.840.114 [id number] 00:00:00 00:00:00 Only Unassigned, [place] 350.1.13.10 [place] [facility] 4.2.7.2.686 [id number] [id number] 2019-12-31 2019-12-31 Orders Doctor BONILLA 1.2.840.114 [id number] Univers 00:00:00 00:00:00 Only Unassigned, [place] 350.1.13.10 ity of [place] [facility] 4.2.7.2.686 Gee as [phone] [address] 2019-12-01 2019-12-01 Laboratory Lab, [facility] 1.2.840.114 [id number] 17:27:34 17:49:51 Only Fam Pob I Health 350.1.13.10 [place] 4.2.7.2.686 Professio [phone] [place] [address] Office [address] One 2019-12-01 2019-12-01 Laboratory Lab, [facility] Fam Pob I [facility] 1.2. 840.114 [id number] Univers 17:27:34 17:49:51 Only Green, [facility] 350.1.13.10 ity of [place] 4.2.7.2.686 Gee as Professio [phone] De dical [address] Office Building [facility] 2019-12-01 2019-12-01 Outpatient R DENA [facility] [id number] Univers 17:20:00 17:20:00 ZENAIDA ity of [facility] 2019-12-01 2019-12-01 Letter Doctor CHAD 1.2.840.114 [id number] 00:00:00 00:00:00 (Out) Unassigned, [place] 350.1.13.10 [place] [facility] 4.2.7.2.686 [id number] [facility] 2019-12-01 2019-12-01 Letter Doctor CHAD 1.2.840.114 [id number] Univers 00:00:00 00:00:00 (Out) Unassigned, [place] 350.1.13.10 ity of [place] [facility] 4.2.7.2.686 Gee as [phone] [address] 2019-11-07 2019-11-07 Laboratory Lab, [facility] 1.2.840.114 [id number] 08:03:33 08:23:33 Only Fam Pob I Health 350.1.13.10 [place] 4.2.7.2.686 Professio [phone] nal [facility] Office Building One 2019-11-07 2019-11-07 Laboratory Lab, [facility] Fam Pob I [facility] 1.2. 840.114 [id number] Univers 08:03:33 08:23:33 Only Estelita Bolaños 350.1.13.10 matt [facility] 4.2.7.2.686 Gee as Jordana [phone] [place] [address] [address] Office Building One 2019-11-07 2019-11-07 Outpatient R MARIA INES [facility] [id number] Univers 08:00:00 08:00:00 ESTELITA gutierrez [facility] 2017-11-17 2017-11-17 Outpatient DEONDRE WALSH, [facility] SLE [id number] SLE 00:00:00 00:00:00 DAMLA Results Test Description Test Time Test Comments Results Result Sour e Comments SCR MAMM BILATERAL 2022-03-09 SOFY CAD DIGITAL 12:43:28 Name: Jessie : 1965 Sex: F * - SCR MAMM BILATERAL SOFY CAD DIGITALBILATERAL DIGITAL SCREENING MAMMOGRAM 3D/2D WITH CAD: 03/07/2022LINICAL: Asymptomatic. Digital breast tomosynthesis was performed in addition to routine CC and MLO views. Current mammographic images were evaluated by [employer] CAD (computer-aided detection) software. Comparison is made to exams dated 02/25/2021 mammogram, 02/25/2020 mammogram - [facility] and 12/27/2018 mammogram - [facility]. There are scattered fibroglandular tissues in both breasts. There are benign masses in the left breast. No suspicious mass, architectural distortion, malignant type calcification, or lymph node abnormality detected. Breast architecture is stable compared to prior exams.IMPRESSION: BENIGNThere is no mammographic evidence of malignancy. Resume annual screening mammography in one year. (03/08/2023) Jung Simon M.D. ss/penrad:03/09/2022 12:43:28 Map Drafter: Soila Churchill [facility]-FWletter sent: BIRADS 1-2 Normal Mammogram BI-RADS: 2 Benign SCR MAMM BILATERAL 2021-03-01 SOFY CAD DIGITAL 11:30:27 Name: Jessie : 1965 Sex: F * - SCR MAMM BILATERAL SOFY CAD DIGITALBILATERAL DIGITAL SCREENING MAMMOGRAM 3D/2D WITH CAD: 02/25/2021LINICAL: Asymptomatic. Digital breast tomosynthesis was performed in addition to routine CC and MLO views. Current mammographic images were evaluated by [employer] CAD (computer-aided detection) software. Comparison is made to exams dated 02/25/2020 mammogram - [facility]-, 12/27/2018 mammogram, and 11/14/2017 mammogram - [facility]. There are scattered fibroglandular tissues in both breasts. There are benign masses in the left breast. No suspicious mass, architectural distortion, malignant type calcification, or lymph node abnormality detected. Breast architecture is stable compared to prior exams.IMPRESSION: BENIGNThere is no mammographic evidence of malignancy. Resume annual screening mammography in one year. Jung Simon M.D. ss/penrad:03/01/2021 11:30:27 Map Drafter: Mekhi GARVIN [facility]FWletter sent: BIRADS 1-2 Normal Mammogram BI-RADS: 2 Benign SCR MAMM BILATERAL 2020-02-26 SOFY CAD DIGITAL 12:34:10 Name: Jessie : 1965 Sex: F * - SCR MAMM BILATERAL SOFY CAD DIGITALBILATERAL DIGITAL SCREENING MAMMOGRAM 3D/2D WITH CAD: 02/25/2020CLINICAL: Asymptomatic. Digital breast tomosynthesis was performed in addition to routine CC and MLO views. Current mammographic images were evaluated by either a [employer] M-Vu or a [employer] Image[employer]er CAD (computer aided detection system). Comparison is made to exams dated 07/04/2005 mammogram - [facility], 05/13/2004 mammogram, and 10/17/2002 [facility]FW. There are scattered fibroglandular tissues in both breasts. There are benign masses in both breasts. No suspicious mass, architectural distortion, malignant type calcification, or lymph node abnormality detected. Breast architecture is stable compared to prior exams.IMPRESSION: BENIGNThere is no mammographic evidence of malignancy. Resume annual screening mammography in one year. Jung Simon M.D. ss/penrad:02/26/2020 12:34:10 Map Drafter: Mili Cochran , [facility]-FWletter sent: BIRADS 1-2 Normal Mammogram BI-RADS: 2 Benign MM, DIGITAL, 2018-12-27 Diagnostic MRN#: MAMMO, SCREENING, 13:48:00 workup per [id number] - WITH SOFY, radiologist?->Ye MM, DIGITAL, MAMMO, BILATERAL sReason for SCREENING, WITH INCLUDING CAD Exam:->Z12.31 SOFY, BILATERAL INCLUDING CADBILATERAL DIGITAL SCREENING MAMMOGRAM 3D/2D WITH CAD: 12/27/2018Comparison is made to exams dated: 11/14/2017 mammogram, 11/08/2016 mammogram, and 11/06/2015 mammogram - [facility]. There are scattered fibroglandular elements in both [...] exam was reviewed by a staff physician. Du Mcknight,[facility]/penrad:1 13:48:37 Normal Exam Mammogram BI-RADS: 2 Benign , DIGITAL, 2017-11-14 Reason for MRN#: MAMMO, SCREENING, 15:17:00 Exam:->BREAST [id number] - BILATERAL CANCER SCREENING MM, DIGITAL, MAMMO, INCLUDING CAD SCREENING, BILATERAL INCLUDING CADBILATERAL DIGITAL SCREENING MAMMOGRAM WITH CAD: 11/14/2017CLINICAL: Routine screening mammogram. Comparison is made to exams dated: 11/08/2016 mammogram and 11/06/2015 mammogram - [facility]. There are scattered fibroglandular elements in both breasts that could obscure a lesion on mammography. Current study was also evaluated with a Computer Aided Detection (CAD) system. No significant masses, calcifications, or other findings are seen in either breast. IMPRESSION: NEGATIVEThere is no mammographic evidence of malignancy. A 1 year screening mammogram is recommended. The exam was reviewed by a staff physician. Du Mcknight,[facility]/penrad: 15:17:34 Normal Exam Mammogram BI-RADS: 1 Negative G0202 -HEMOGLOBIN METER 2016-12-28 13:05:00 Test Item Value Reference Range Interpretation Comme nts POC-HEMOGLOBIN METER (SHAYLEE) (test 14.2 g/dL 12.0-15.0 TESTED AT [facility] [address] [facility] = 1539) [facility] 7703 0 Notes Date/Time Note Provider Source 2016-12-28 22:57:00-00:[address] [facility] REPORT OF PROCEDURE JESSIE TIM FACILITY: [facility] BILLING #: [id number] [facility]OM: [facility] MR #: [id number] : 1965 DATE OF PROCEDURE: 12/28/2016 SURGEON: Andrews Shannon MD GOVERNMENT SALES MANAGER: Dr. Bruce Allen, hand fellow ANESTHESIA: [place] block. PREOPERATIVE DIAGNOSIS: Right carpal tunnel synd los (G56.01). POSTOPERATIVE DIAGNOSIS: Right carpal tunnel syn drome (G56.01). OPERATION PERFORMED: Right carpal tunnel release (71122). INDICATIONS FOR PROCEDURE: This patient is 51 ye ars of age who has severely symptomatic right carpal tunnel syndrome and les s severe on the left, and she has severe changes seen on electrodiagnostic yohan dies as well. She is brought to the operating room for right carpal tunnel re lease. DESCRIPTION OF PROCEDURE: After [place] block has b een placed, the entire right upper extremity is prepped with Betadine and yumiko ped in a sterile fashion. I made a longitudinal curvilinear incision paralle l to the thenar crease and stopping short of the wrist flexion crease. Diss ection continues through palmar fascia and I next encountered the transve rse carpal ligament which in turn is divided longitudinally from distal to pr oximal, and the proximal most division of that transverse carpal ligament is d one under direct vision with the retractor in the vicinity of the wrist flexi on crease holding the skin in a volar direction. Having confirmed a complete r elease of the transverse carpal ligament, I next assessed the contents of carpal canal. Median nerve is noted to be hyperemic over a segment of about a centimeter and half indicating chronic compression. The motor branch of the median nerve is clearly identified and the contents of carpal ca nal were then retracted in a radial direction, the floor of the canal evaluat ed, no other extrinsic compressive pathology is identified. The wound i s then irrigated with normal saline and the wound edges approximated with int errupted 5-0 nylon sutures. Plain Marcaine 0.25% is then used to infiltrate the wound edges to help with postoperative analgesia. Dressings take the form of Adaptic with bacitracin ointment, followed by a conforming Kerlix and We bril, and a volar plaster splint to keep the wrist comfortably dorsiflexed and leaving the fingers and thumb free to move. Meanwhile, the tourniquet bernal s long since been released and there is immediately good capillary refill a nd blanching to distal fingertips and thumb. The patient returned to re covery room in good condition. Sponge and needle counts correct at t he end of procedure. Patient is discharged home to care of her rin whitman. A sling is fitted to the right arm. She will keep the right arm elevated at all times, wear the sling when ambulating. Active finger flexion and exten meredith are to be encouraged. She will keep dressings clean and dry. They will call for any problems should they monserrat e and to keep the scheduled followup clinic appointment. ELIE/ P P Job#: [id number] Doc#: [id number] FN: [id number] cc: Andrews Shannon MD
[2022-10-31 07:48] LABS: Urine Bacteria None Seen /HPF (<20); Urine Bilirubin NEGATIVE (Negative); Urine Blood Trace (Negative); Urine Clarity Clear (Clear); Urine Color Colorless (Yellow); Urine Glucose NEGATIVE (Negative); Urine Protein NEGATIVE (Negative); Urine RBC <5 /HPF (None Seen); Urine Urobilinogen Normal (Normal)
--- NOTE | 2022-10-31 08:04 | ER ---
Nurse's Notes [facility] Name: Jessie Zaldivar Age: 57 yrs Sex: Female : 1965 Arrival Date: 10/31/2022 Time: 06:23 Bed 14 Private MD: Diagnosis: Low back pain;Hematuria, unspecified Presentation: 10/31 06:44 Chief complaint: Patient states: lower back pain radiating to pelvis and right leg X3 lg3 weeks. i was seen here a few weeks ago and was given muscle relaxers but its not getting any better. Coronavirus screen: Client denies travel out of the [place] in the last 14 days. At this time, the client does not indicate any symptoms associated with coronavirus-19. Ebola Screen: No symptoms or risks identified at this time. Initial Sepsis Screen: Does the patient meet any 2 criteria? No. Patient's initial sepsis screen is negative. Does the patient have a suspected source of infection? No. Patient's initial sepsis screen is negative. Risk Assessment: Do you want to hurt yourself or someone else? Patient reports no desire to harm self or others. Onset of symptoms is unknown. 06:44 Method Of Arrival: Ambulatory lg3 06:44 Acuity: RIZWANA 3 lg3 Triage Assessment: 06:46 General: Appears in no apparent distress. uncomfortable, Behavior is calm, cooperative. lg3 Pain: Complains of pain in low back area Pain radiates to pelvis and right leg. EENT: No deficits noted. No signs and/or symptoms were reported regarding the EENT system. Neuro: No deficits noted. Rick Agitation-Sedation Scale (RASS): 0 - Alert and Calm Level of Consciousness is awake, alert, obeys commands, Oriented to person, place, time, situation. Cardiovascular: No deficits noted. Denies chest pain, shortness of breath, Capillary refill < 3 seconds Clubbing of nail beds is absent JVD is absent Patient's skin is warm and dry. Respiratory: No deficits noted. Airway is patent Respiratory effort is even, unlabored, Respiratory pattern is regular, symmetrical. GI: No deficits noted. No signs and/or symptoms were reported involving the gastrointestinal system. Abdomen is round non-distended. : No deficits noted. No signs and/or symptoms were reported regarding the genitourinary system. Derm: No deficits noted. No signs and/or symptoms reported regarding the dermatologic system. Skin is intact, is healthy with good turgor, Skin is dry, Skin is normal, Skin temperature is warm. Musculoskeletal: Circulation, motion, and sensation intact. Range of motion: intact in all extremities, Reports pain in low back area. Historical: - Allergies: 06:46 No Known Allergies; lg3 - Home Meds: 06:46 bisoprolol fumarate 5 mg Oral tab 1 tab once daily [Active]; levothyroxine 112 mcg tab lg3 1 tab once daily [Active]; losartan 50 mg Oral tab 1 tab once daily [Active]; - PMHx: 06:46 Hypercholesterolemia; Hypertension; Hypothyroidism; ulcerative colitis; lg3 - PSHx: 06:46 section; Cholecystectomy; lg3 - Immunization history:: Adult Immunizations up to date, Client reports receiving the 1st dose of the Covid vaccine, Flu vaccine is not up to date. - Social history:: Smoking status: Patient denies any tobacco usage or history of. Patient uses alcohol, occasionally. Patient/guardian denies using street drugs. Screenin:48 [facility] ED Fall Risk Assessment (Adult) History of falling in the last 3 months, lg3 including since admission No falls in past 3 months (0 pts). Abuse screen: Denies threats or abuse. Denies injuries from another. Nutritional screening: No deficits noted. Tuberculosis screening: No symptoms or risk factors identified. Assessment: 06:48 General: see triage assessment . Neuro: No deficits noted. Rick Agitation-Sedation lg3 Scale (RASS): 0 - Alert and Calm Level of Consciousness is awake, alert, obeys commands, Oriented to person, place, time, situation. 07:15 Reassessment: Patient appears in no apparent distress at this time. Patient and/or db family updated on plan of care and expected duration. Pain level reassessed. Patient is alert, oriented x 3, equal unlabored respirations, skin warm/dry/pink. right flank radiating to front. General: Appears in no apparent distress. comfortable, Behavior is calm, cooperative. Pain: Complains of pain in low back area. Respiratory: Airway is patent Respiratory effort is even, unlabored, Respiratory pattern is regular, symmetrical. : No signs and/or symptoms were reported regarding the genitourinary system. Urine is clear. 07:30 Reassessment: patient ambulatory to restroom. db 08:19 Reassessment: Patient appears in no apparent distress at this time. Patient and/or db family updated on plan of care and expected duration. Pain level reassessed. Patient is alert, oriented x 3, equal unlabored respirations, skin warm/dry/pink. Vital Signs: 06:44 BP 137 / 80; Pulse 79; Resp 16 S; Temp 98.3(O); Pulse Ox 97% on R/A; Weight 86.18 kg lg3 (R); Height 5 ft. 1 in. (R); Pain 7/10; 07:34 BP 123 / 90; Pulse 73; Resp 16; Pulse Ox 99% on R/A; db 08:00 BP 119 / 77; Pulse 71; Resp 18; Pulse Ox 95% on R/A; db 06:44 Body Mass Index 35.90 (86.18 kg, 154.94 cm) lg3 06:44 Pain Scale: Adult lg3 ED Course: 06:31 Patient arrived in ED. ag3 06:46 Triage completed. lg3 06:46 Arm band placed on right wrist. lg3 06:48 Patient has correct armband on for positive identification. Placed in gown. Bed in low lg3 position. Call light in reach. Side rails up X 1. Client placed on continuous cardiac and pulse oximetry monitoring. NIBP monitoring applied. Door closed. Noise minimized. Warm blanket given. 07:03 Rodriguez Huffman DO is Attending Physician. ms3 07:37 Aniya Titus, RN is Primary Nurse. db 08:00 Provided Education on: discharge instructions. db 08:00 No provider procedures requiring assistance completed. Patient did not have IV access db during this emergency room visit. Administered Medications: No medications were administered Medication: 08:00 VIS not applicable for this client. db Outcome: 08:00 Discharged to home ambulatory. db 08:00 Condition: stable 08:00 Discharge instructions given to patient, Instructed on discharge instructions, follow up and referral plans. 08:03 Discharge ordered by . ms3 08:21 Patient left the ED. db Signatures: Viki Hope ag3 Trinidad Orozco RN RN lg3 Rodriguez Huffman DO DO ms3 Aniya Titus RN RN db
--- NOTE | 2022-10-31 08:04 | EDPHYS ---
Physician Documentation [facility] Name: Jessie Zaldivar Age: 57 yrs Sex: Female : 1965 Arrival Date: 10/31/2022 Time: 06:23 Bed 14 Private MD: ED Physician Rodriguez Huffman HPI: 10/31 07:44 This 57 yrs old Female presents to ER via Ambulatory with complaints of Back ms3 Pain. 07:44 57-year-old female with past medical history of hypercholesterolemia, hypertension, ms3 hypothyroidism, ulcerative colitis presents for right sided low back pain. Patient rates her pain a 7/10. Patient states she was seen 3 weeks ago for right hip pain and a CT scan was performed at that time that was negative. Patient states she was prescribed Flexeril and diclofenac. Patient states pain is now more posterior radiating to the right groin and down her right leg. Patient denies fevers, chills, nausea, vomiting, weakness, bowel or bladder incontinence, dysuria, hematuria.. Historical: - Allergies: 06:46 No Known Allergies; lg3 - Home Meds: 06:46 bisoprolol fumarate 5 mg Oral tab 1 tab once daily [Active]; levothyroxine 112 mcg tab lg3 1 tab once daily [Active]; losartan 50 mg Oral tab 1 tab once daily [Active]; - PMHx: 06:46 Hypercholesterolemia; Hypertension; Hypothyroidism; ulcerative colitis; lg3 - PSHx: 06:46 section; Cholecystectomy; lg3 - Immunization history:: Adult Immunizations up to date, Client reports receiving the 1st dose of the Covid vaccine, Flu vaccine is not up to date. - Social history:: Smoking status: Patient denies any tobacco usage or history of. Patient uses alcohol, occasionally. Patient/guardian denies using street drugs. ROS: 07:46 Constitutional: Negative for fever, and chills. Neck: Negative for injury, pain, and ms3 swelling, Cardiovascular: Negative for chest pain, and palpitations. Respiratory: Negative for shortness of breath, cough, wheezing, and pleuritic chest pain, Abdomen/GI: Negative for abdominal pain, nausea, vomiting, diarrhea, and constipation, Skin: Negative for injury, rash, and discoloration. 07:46 Back: Positive for 07:46 MS/extremity: Positive for Exam: 08:04 Constitutional: This is a well developed, well nourished patient who is awake, alert, ms3 and in no acute distress. Head/Face: Normocephalic, atraumatic. Chest/axilla: Normal chest wall appearance and motion. Nontender with no deformity. Cardiovascular: Regular rate and rhythm with a normal S1 and S2. No gallops, murmurs, or rubs. Normal PMI, no JVD. No pulse deficits. Respiratory: Lungs have equal breath sounds bilaterally, clear to auscultation and percussion. No rales, rhonchi or wheezes noted. No increased work of breathing, no retractions or nasal flaring. Abdomen/GI: Soft, non-tender, with normal bowel sounds. No distension or tympany. No guarding or rebound. No evidence of tenderness throughout. Skin: Warm, dry with normal turgor. Normal color with no rashes, no lesions, and no evidence of cellulitis. MS/ Extremity: Pulses equal, no cyanosis. Neurovascular intact. Full, normal range of motion. 08:04 Back: pain, that is moderate, ROM is normal spinal alignment noted, CVA tenderness, is absent, vertebral tenderness, is not appreciated. Vital Signs: 06:44 BP 137 / 80; Pulse 79; Resp 16 S; Temp 98.3(O); Pulse Ox 97% on R/A; Weight 86.18 kg lg3 (R); Height 5 ft. 1 in. (R); Pain 7/10; 07:34 BP 123 / 90; Pulse 73; Resp 16; Pulse Ox 99% on R/A; db 08:00 BP 119 / 77; Pulse 71; Resp 18; Pulse Ox 95% on R/A; db 06:44 Body Mass Index 35.90 (86.18 kg, 154.94 cm) lg3 06:44 Pain Scale: Adult lg3 MDM: 07:15 Patient medically screened. ms3 08:04 Differential diagnosis: UTI vs Pyelonephritis vs Muscle spasm vs MSK pain. Data ms3 reviewed: vital signs, nurses notes, lab test result(s), and as a result, I will discharge patient. External Records Reviewed: CT scan from last ED visit does not show renal or ureteral stone. Counseling: I had a detailed discussion with the patient and/or guardian regarding: the historical points, exam findings, and any diagnostic results supporting the discharge/admit diagnosis, lab results, the need for outpatient follow up, to return to the emergency department if symptoms worsen or persist or if there are any questions or concerns that arise at home. Special discussion: I discussed with the patient/guardian in detail that at this point there is no indication for admission to the hospital. It is understood, however, that if the symptoms persist or worsen the patient needs to return immediately for re-evaluation. ED course: Discussed urinalysis with patient. Patient to follow-up with primary care physician in 2 to 3 days. Patient understands agrees to plan. All questions were answered. Return precautions discussed include worsening symptoms, or any other concerns. 10/31 07:16 Order name: Urinalysis w/ reflexes; Complete Time: 07:51 ms3 Administered Medications: No medications were administered Disposition Summary: 10/31/22 08:03 Discharge Ordered Location: Home ms3 Condition: Stable ms3 Diagnosis - Low back pain ms3 - Hematuria, unspecified ms3 Followup: ms3 - With: Private Physician - When: 2 - 3 days - Reason: Recheck today's complaints Discharge Instructions: - Discharge Summary Sheet ms3 - Acute Back Pain, Adult ms3 - Hematuria, Adult ms3 Forms: - Medication Reconciliation Form ms3 - Thank You Letter ms3 - Antibiotic Education ms3 - Prescription Opioid Use ms3 - Patient Portal Instructions ms3 - Leadership Thank You Letter ms3 Signatures: Dispatcher [employer] Trinidad De Luna RN RN lg3 Rodriguez Huffman DO DO ms3
[2022-10-31 08:27] VITALS: TEMP 98.3
[2022-10-31 08:29] VITALS: BP 119/77; O2SAT 95
== END 2022-10-31 08:21 | disposition home or self-care (01) ==
LOC: ER 06:23
DX: M54.50 Low back pain, unspecified (principal); R31.9 Hematuria, unspecified; I10 Essential (primary) hypertension
CPT/HCPCS: 81001; 99283

== ENCOUNTER 2024-02-19 18:55 | Emergency (ER) | payer BC ==
[2024-02-19 20:26] LABS: Absolute Eosinophils 0.2 K/uL (0-0.5); Absolute Lymphocytes (CBC) 1.4 K/uL (0.7-4.9); Absolute Monocytes 0.7 K/uL (0.1-1.3); Absolute Neutrophil 6.5 K/uL (1.8-8.0); Basophils % 0.4 % (0-1.3); Eosinophils % 2.4 % (0-4.4); Hemoglobin 15.1 g/dL (12.0-15.0); Lymphocytes % 16.3 % (15.3-44.8); MCH 28.4 pg (27.0-35.0); MCHC 33.6 g/dL (32.0-36.0); MCV 84.4 fL (80-100); MPV 8.8 fL (7.6-11.3); Monocytes % 7.5 % (3.3-12.3); Neutrophils % 73.4 % (41.7-73.7); Nucleated Red Blood Cells % 0.1 % (0-0); Platelets 208 thou/uL (152-406); RBC Red Blood Cell Count 5.33 M/uL (3.86-4.86); Red Cell Distribution Width 13.8 % (12.1-15.2)
[2024-02-19 20:35] LABS: SARS-CoV-2 Antigen CONTROL BLUE LINE VIS/BG OK; SARS-CoV-2 Antigen Rapid Res Negative (Negative)
[2024-02-19 20:39] LABS: Albumin 3.7 g/dL (3.4-5.0); Albumin/Globulin Ratio 0.9 (1.1-1.8); Bilirubin Total 0.6 mg/dL (0.2-1.0); Protein, Total 7.7 g/dL (6.4-8.2)
--- NOTE | 2024-02-19 20:44 | EDPHYS ---
Physician Documentation [facility] Name: Jessie Zaldivar Age: 58 yrs Sex: Female : 1965 Arrival Date: 02/19/2024 Time: 18:55 Bed DX3 Private MD: ED Physician Juarez Vallejo HPI: 02/18 19:17 This 58 yrs old Female presents to ER via Ambulatory with complaints of ec2 Abdominal Pain. 19:17 Patient arrives today for evaluation of possible dehydration. Reports that she has been ec2 experiencing some nausea and vomiting, decreased p.o. intake, had outpatient labs, noted that she had an elevated ALT at 70 and came in for further evaluation, was not prompted to come for this ALT elevation, reports otherwise no abdominal pathology history.. Historical: - Allergies: 19:14 No Known Allergies; aa5 - PMHx: 19:14 Hypercholesterolemia; Hypertension; Hypothyroidism; ulcerative colitis; aa5 - PSHx: 19:14 section; Cholecystectomy; aa5 - Immunization history:: Adult Immunizations unknown. - Infectious Disease History:: Denies. - Social history:: Smoking status: Patient denies any tobacco usage or history of. ROS: 19:17 Constitutional: as per hpi ec2 Exam: 19:17 Constitutional: GEN: NAD Head: atraumatic Eyes: EOMI Ears: External ears are ec2 normal. CV: regular rate LUNGS: no respiratory distress ABD: non-distended, soft, not guarding, not rigid, nontender SKIN: no evidence of rashes MSK: no evidence of trauma Vital Signs: 19:12 BP 173 / 113; Pulse 88; Resp 16 S; Temp 99.5(O); Pulse Ox 100% on R/A; Weight 86.18 kg aa5 (R); Height 5 ft. 1 in. (R); 21:05 BP 156 / 93; Pulse 80; Resp 14; Pulse Ox 96% ; vc1 19:12 Body Mass Index 35.90 (86.18 kg, 154.94 cm) aa5 MDM: 19:17 Medical Screening Exam initiated ec2 19:17 Data reviewed: vital signs, nurses notes. ED course: Patient arrives today due to ec2 concern for dehydration. Examination is unrevealing. Will obtain lab work, give the patient crystalloid and reassess. Suspect possible gastroenteritis, doubt liver pathology or gallbladder pathology given reassuring abdominal examination.. 20:26 ED course: Patient signed out to me by daytime physician. Patient is a 58-year-old sp3 female who presents with abnormal LFT reading and vague symptoms. Patient also had nausea which is resolved. We are currently awaiting labs and general supportive care. If workup negative we will safely discharge home. Repeat blood pressure pending.. 20:43 ED course: LFTs here are normal. BP recheck pending. Flu is positive. Will discharge on sp3 ondansetron ODT and follow-up with PCP.. 02/18 19:14 Order name: CBC with Diff; Complete Time: 20:41 ec2 02/18 19:14 Order name: CMP; Complete Time: 20:41 ec2 02/18 19:14 Order name: Influenza Screen (a \T\ B); Complete Time: 20:41 ec2 02/18 19:14 Order name: SARS RAPID; Complete Time: 20:41 ec2 02/18 20:27 Order name: Recheck Blood Pressure; Complete Time: 21:08 sp3 Administered Medications: 20:48 Not Given (Physician Discretion): ns 0.9% 500 ml 500 ml IV at 1 bolus once; to be given vc1 as a bolus over 30 minutes 21:07 Drug: Acetaminophen PO 1000 mg PO once Route: PO; vc1 21:08 Follow up: Response: Medication administered at discharge. vc1 Disposition Summary: 02/19/24 20:44 Discharge Ordered Notes: Location: Home sp3 Condition: Stable sp3 Diagnosis - Nausea with vomiting, unspecified sp3 - Influenza sp3 Followup: ec2 - With: Private Physician - When: - Reason: Re-evaluation by your physician Discharge Instructions: - Influenza, Adult sp3 - Discharge Summary Sheet ec2 - Nausea and Vomiting, Adult ec2 Forms: - Medication Reconciliation Form sp3 - Antibiotic Education sp3 - Prescription Opioid Use sp3 - Patient Portal Instructions sp3 - Leadership Thank You Letter sp3 Prescriptions: - Zofran 4 mg Oral Tablet - take 1 tablet ORAL route every 12 hours As needed; 20 tablet; Refills: 0, ec2 Product Selection Permitted Signatures: Dispatcher [employer] EDMS rKystle Vincent RN RN aa5 Juarez Vallejo MD MD sp3 Jannet Doherty RN RN vc1 Sandro Thompson, MD ec2
--- NOTE | 2024-02-19 20:44 | ER ---
Nurse's Notes [facility] Name: Jessie Zaldivar Age: 58 yrs Sex: Female : 1965 Arrival Date: 02/19/2024 Time: 18:55 Bed DX3 Private MD: Diagnosis: Nausea with vomiting, unspecified;Influenza Presentation: 02/18 19:12 Chief complaint: Patient states: abdominal cramping and diarrhea. Coronavirus screen: aa5 diarrhea. Ebola Screen: Patient denies travel to an Ebola-affected area in the 21 days before illness onset. Initial Sepsis Screen: Does the patient meet any 2 criteria? No. Patient's initial sepsis screen is negative. Does the patient have a suspected source of infection? No. Patient's initial sepsis screen is negative. Risk Assessment: Do you want to hurt yourself or someone else? Patient reports no desire to harm self or others. Onset of symptoms was February 2024. 19:12 Method Of Arrival: Ambulatory aa5 19:12 Acuity: RIZWANA 3 aa5 Triage Assessment: 21:06 General: Appears in no apparent distress. comfortable, slender, well groomed, well vc1 developed, well nourished, Behavior is calm, cooperative, appropriate for age. Pain: Complains of pain in abdomen. EENT: No deficits noted. No signs and/or symptoms were reported regarding the EENT system. Neuro: Level of Consciousness is awake, alert, obeys commands, Oriented to person, place, time, situation, Appropriate for age. Cardiovascular: Patient's skin is warm and dry. Respiratory: Airway is patent Respiratory effort is even, unlabored, Respiratory pattern is regular, symmetrical. GI: Reports lower abdominal pain, upper abdominal pain. : No deficits noted. No signs and/or symptoms were reported regarding the genitourinary system. Derm: Skin is intact, is healthy with good turgor, Skin is dry, Skin is normal, Skin temperature is warm. Musculoskeletal: Circulation, motion, and sensation intact. Range of motion: intact in all extremities. Historical: - Allergies: 19:14 No Known Allergies; aa5 - PMHx: 19:14 Hypercholesterolemia; Hypertension; Hypothyroidism; ulcerative colitis; aa5 - PSHx: 19:14 section; Cholecystectomy; aa5 - Immunization history:: Adult Immunizations unknown. - Infectious Disease History:: Denies. - Social history:: Smoking status: Patient denies any tobacco usage or history of. Screenin:05 [facility] ED Fall Risk Assessment (Adult) History of falling in the last 3 months, vc1 including since admission No falls in past 3 months (0 pts) Confusion or Disorientation No (0 pts) Intoxicated or Sedated No (0 pts) Impaired Gait No (0 pts) Mobility Assist Device Used No (0 pt) Altered Elimination No (0 pt) Score/Fall Risk Level 0 - 2 = Low Risk Oriented to surroundings, Maintained a safe environment, Educated pt \T\ family on fall prevention, incl call for assistance when getting out of bed. Abuse screen: Denies threats or abuse. Nutritional screening: No deficits noted. Tuberculosis screening: No symptoms or risk factors identified. Vital Signs: 19:12 BP 173 / 113; Pulse 88; Resp 16 S; Temp 99.5(O); Pulse Ox 100% on R/A; Weight 86.18 kg aa5 (R); Height 5 ft. 1 in. (R); 21:05 BP 156 / 93; Pulse 80; Resp 14; Pulse Ox 96% ; vc1 19:12 Body Mass Index 35.90 (86.18 kg, 154.94 cm) aa5 ED Course: 18:58 Patient arrived in ED. ra3 18:59 Sandro Thompson MD is Attending Physician. ec2 19:12 Arm band placed on. aa5 19:13 Triage completed. aa5 20:18 SARS RAPID Sent. oe 20:18 Influenza Screen (a \T\ B) Sent. oe 20:18 CMP Sent. oe 20:18 CBC with Diff Sent. oe 20:18 Inserted saline lock: 22 gauge in left antecubital area, using aseptic technique. Blood oe collected. Flushed with 10 mL NS. 20:20 Attending Physician role handed off by Sandro Thompson MD sp3 20:20 Juarez Vallejo MD is Attending Physician. sp3 21:06 treated and discharged from diagnostic chair. vc1 21:06 No provider procedures requiring assistance completed. IV discontinued, intact, vc1 bleeding controlled, No redness/swelling at site. Pressure dressing applied. Administered Medications: 20:48 Not Given (Physician Discretion): ns 0.9% 500 ml 500 ml IV at 1 bolus once; to be given vc1 as a bolus over 30 minutes 21:07 Drug: Acetaminophen PO 1000 mg PO once Route: PO; vc1 21:08 Follow up: Response: Medication administered at discharge. vc1 Medication: 21:05 VIS not applicable for this client. vc1 Outcome: 20:44 Discharge ordered by . sp3 21:07 Discharged to home ambulatory, vc1 21:07 Condition: good 21:07 Discharge instructions given to patient, Instructed on discharge instructions, follow up and referral plans. medication usage, Demonstrated understanding of instructions, follow-up care, medications, Prescriptions given X 1, 21:07 Patient left the ED. vc1 Signatures: Krystle Vincent RN RN aa5 Chalo Moctezuma Setul, MD MD sp3 Jannet Doherty RN RN vc1 Sandro Thompson MD MD ec2 Karina Ordoñez ra3
[2024-02-19] MEDS ORDERED: ACETAMINOPHEN 500 MG TAB ONE (20:59)
[2024-02-19 23:41] VITALS: TEMP 99.5
[2024-02-19 23:46] VITALS: BP 156/93; O2SAT 96
== END 2024-02-19 21:07 | disposition home or self-care (01) ==
LOC: ER 18:55
DX: R11.2 Nausea with vomiting, unspecified (principal); J11.1 Influenza due to unidentified influenza virus with other respiratory manifestations; I10 Essential (primary) hypertension; E78.00 Pure hypercholesterolemia, unspecified; E03.9 Hypothyroidism, unspecified; Z11.52 Encounter for screening for COVID-19
CPT/HCPCS: 36415; 80053; 85025; 87804; 87811; 99284